=== PATIENT | male | born 1945 | race Caucasian/White ===

== ENCOUNTER → 2017-04-03 | Outpatient (CLI) | payer MEDICARE, OTHER ==
[~2017-04-03] MED LIST: ALBU6.7H INH; AMOX500T PO; ASPI325T PO; CIAL20TA PO; CLOB-50 TOP; FEXO60TA PO; FURO20TA PO; LOSA50TA PO; MILK200C PO; OMEG100037 PO; PRAM0.25 PO; PRED20 PO; PROS5TAB2 PO; PROT0.1O TOP; SODI1000 PO; TAB-TAB PO; TERB250 PO; TRAM50TA PO; ZOLP10TA3 PO; [UNRECOGNIZED DRUG - OTHER] PO
--- NOTE | 2017-04-24 09:24 | RSPPFT ---
DATE OF PROCEDURE: 04/03/17 COMMENTS: Spirometry demonstrates an FEV1 of 1.5 at 39% of predicted, FVC of 3.7 at 76%, FEV1/FVC ratio is 40%. The FEF 25-75 is 9%. Post-bronchodilator study demonstrated no significant change. Lung volumes demonstrated a raised RV/TLC ratio indicating hyperinflation and air trapping. Diffusion capacity is moderately reduced. Flow volume loop suggests severe obstruction. IMPRESSION: 1. Severe obstructive disease. 2. No significant change following use of bronchodilator. 3. Moderate loss in diffusion capacity.
== END ==
LOC: PHRSP 09:24
DX: J44.9 Chronic obstructive pulmonary disease, unspecified (principal); R05 Cough; R06.00 Dyspnea, unspecified
CPT/HCPCS: 94060; 94726; 94729

== ENCOUNTER 2017-07-02 13:58 | Inpatient (IN) | payer MEDICARE, OTHER ==
[2017-07-02] VITALS (9 sets, daily range): BP systolic 135–168; BP diastolic 56–86; PULSE 83–92; RESP 16–24; TEMP 97.2–98; O2SAT 90–95
[~2017-07-02] VITALS: Ht 185.4 cm; Wt 65.0 kg
[2017-07-02] MEDS ORDERED: CIAL5TAB PO (14:15)
[2017-07-02] MEDS ORDERED: L-AR1000 (14:15)
[2017-07-02] MEDS ORDERED: FINA5TAB2 (14:15)
[2017-07-02] MEDS ORDERED: BOSWTAB2 PO (14:15)
[2017-07-02] MEDS ORDERED: LOSARTAN POTASSIUM (14:15)
[2017-07-02] MEDS ORDERED: MILKPOW (14:15)
[2017-07-02] MEDS ORDERED: MULTTAB67 PO (14:15)
[2017-07-02] MEDS ORDERED: ALPH600C (14:15)
[2017-07-02] MEDS ORDERED: GABA600T PO (14:15)
[2017-07-02] MEDS ORDERED: ASPI81CH7 CHEW (14:15)
[2017-07-02] MEDS ORDERED: BUPR75TA PO (14:15)
[2017-07-02] MEDS ORDERED: UMEC1AER INH (14:15)
[2017-07-02] MEDS: RESP: ALBUTEROL 2.5 MG/IPRATROPIUM 0.5 MG NEB (SCH) INH ×2 (14:27→19:43)
[2017-07-02] MEDS ORDERED: ALBU0.63 NEB (14:36)
[2017-07-02] MEDS ORDERED: [UNRECOGNIZED DRUG - OTHER] NAS.CANULA (14:36)
[2017-07-02 14:38] LABS: BASOPHIL % 0.5 % (0.0-2.0); EOSINOPHIL # 0.2 TH/MM3 (0-0.4); EOSINOPHIL % 2.1 % (0.0-4.0); HEMATOCRIT 41.3 % (39.0-51.0); HEMOGLOBIN 13.7 GM/DL (13.0-17.0); LYMPHOCYTE # 1.1 TH/MM3 (1.0-4.8); MEAN CELL VOLUME 92.3 FL (80.0-100.0); MEAN CORPUSCULAR HEMOGLOBIN 30.5 PG (27.0-34.0); MEAN CORPUSCULAR HGB CONC 33.1 % (32.0-36.0); MEAN PLATELET VOLUME 8.6 FL (7.0-11.0); MONO % 13.7 % (0.0-8.0); MONOCYTE # 1.2 TH/MM3 (0-0.9); NEUT % 70.7 % (16.0-70.0); PLATELET COUNT 150 TH/MM3 (150-450); RED BLOOD COUNT 4.48 MIL/MM3 (4.50-5.90); RED CELL DISTRIBUTION WIDTH 15.5 % (11.6-17.2); WHITE BLOOD COUNT 8.5 TH/MM3 (4.0-11.0)
--- NOTE | 2017-07-02 14:42 | PD ---
HPI Chief Complaint: Respiratory Symptoms Time Seen by Provider: 14:02 Travel History International Travel<30 days: No Contact w/Intl Traveler<30days: No Traveled to known affect area: No History of Present Illness HPI 72yo M with PMH of COPD on 2L home O2 here with c/o sob since yesterday. Said he has been having cold symptoms as well. +Cough. Quit smoking yesterday. Denies any fever, chest pain, n/v, abdominal pain, focal weakness or numbness. Pt was given duonebs x2 and methylprednisolone by EVAC and has some improvement. PFSH Past Medical History Cardiac Catheterization: No Cardiovascular Problems: Yes High Cholesterol: Yes Congestive Heart Failure: No COPD: Yes Diabetes: No Diminished Hearing: No Hypertension: Yes Respiratory: Yes (COPD) Myocardial Infarction: No Past Surgical History Coronary Artery Bypass Graft: No Tonsillectomy: Yes Other Surgery: Yes (FEM POP LEFT LEG 1998) Social History Alcohol Use: Yes (BEER DAILY) Tobacco Use: Yes (1 PPD) Substance Use: No Allergies-Medications (Allergen,Severity, Reaction): Coded Allergies: No Known Allergies (Verified Allergy, Unknown, 07/02/17) Reported Meds & Prescriptions Reported Meds & Active Scripts Active Reported Albuterol Neb (Albuterol Sulfate) Unknown Strength Neb Unknown Dose NEB Q4HR NEB PRN [oxygen O2 @2lpm] 2 Liter OJSE.CANULA DIRECTED Gabapentin 600 Mg Tab 600 Mg PO HS [Losartan Potassium] [Milk Thistle] Alpha Lipoic Acid 600 Mg Cap 600 Mg DIRECTED Aspirin Children's (Aspirin) 81 Mg Chew 81 Mg CHEW BID Glucosamine Complex (Mcuuoeejf-Lnfsxczhpkp-Gqooyyh) 1 Tab 1 Tab PO l-Arginine (Arginine) 1,000 Mg Tab Multiple Vitamin 1 Tab 1 Tab PO DAILY Cialis (Tadalafil) 5 Mg Tab 5 Mg PO DAILY Do not exceed 1 dose/day. Finasteride 5 Mg Tab 5 Mg DAILY Do not crush. Bupropion HCl 75 Mg Tab 150 Mg PO DAILY Anoro Ellipta Inh (Umeclidinium/Vilanterol) 62.5-25 Mcg/Act Aero 1 Puff INH DAILY Review of Systems Except as stated in HPI: all other systems reviewed are Neg Physical Exam Narrative GENERAL: 72yo M in moderate distress. SKIN: Focused skin assessment warm/dry. HEAD: Atraumatic. Normocephalic. EYES: Pupils equal and round. No scleral icterus. No injection or drainage. ENT: No nasal bleeding or discharge. Mucous membranes pink and moist. NECK: Trachea midline. No JVD. CARDIOVASCULAR: Regular rate and rhythm. No murmur appreciated. RESPIRATORY: + accessory muscle use. Expiratory wheezing left upper lung. GASTROINTESTINAL: Abdomen soft, non-tender, nondistended. Hepatic and splenic margins not palpable. MUSCULOSKELETAL: No obvious deformities. No clubbing. No cyanosis. Trace lower extremity edema. NEUROLOGICAL: Awake and alert. No obvious cranial nerve deficits. Motor grossly within normal limits. Normal speech. PSYCHIATRIC: Appropriate mood and affect; insight and judgment normal. Data Data Last Documented VS Vital Signs Date Time Temp Pulse Resp B/P (MAP) Pulse Ox O2 Delivery O2 Flow Rate FiO2 07/02/17 16:15 87 18 135/56 (82) 92 Nasal Cannula 4.00 07/02/17 14:03 98.0 Orders Orders Complete Blood Count With Diff (07/02/17 14:17) Basic Metabolic Panel (Bmp) (07/02/17 14:17) B-Type Natriuretic Peptide (07/02/17 14:17) Act Partial Throm Time (Ptt) (07/02/17 14:17) Prothrombin Time / Inr (Pt) (07/02/17 14:17) Magnesium (Mg) (07/02/17 14:17) Troponin I (07/02/17 14:17) Influenzae A/B Antigen (07/02/17 14:17) Electrocardiogram (07/02/17 14:17) Chest, Single Ap (07/02/17 14:17) Albuterol-Ipratropium Neb (Duoneb Neb) (07/02/17 14:30) Arterial Blood Gas (Abg) (07/02/17 ) Albuterol Neb (Albuterol Neb) (07/02/17 16:15) Ct Pulmonary Angiogram (07/02/17 ) Admit To Inpatient (07/02/17 16:08) Vital Signs (Adult) Q4H (07/02/17 16:08) Activity Oob Ad Kaila (07/02/17 ) Diet Heart Healthy (07/02/17 Dinner) Sodium Chloride 0.9% Flush (Ns Flush) (07/02/17 21:00) Sodium Chloride 0.9% Flush (Ns Flush) (07/02/17 16:15) Albuterol-Ipratropium Neb (Duoneb Neb) (07/02/17 20:00) Albuterol Neb (Albuterol Neb) (07/02/17 18:00) Methylprednisolone So Succ Inj (Solumedr (07/02/17 18:00) Basic Metabolic Panel (Bmp) (07/03/17 06:00) Resp Pulse Oximetry (07/02/17 16:08) Resp Oxygen Jose C Titrat 1-4 L (07/02/17 16:08) Levofloxacin 750 Mg Premix Inj (Levaquin (07/03/17 17:00) Enoxaparin Inj (Lovenox Inj) (07/02/17 18:00) Admit Order (Ed Use Only) (07/02/17 16:14) Labs Laboratory Tests Test 07/02/17 14:05 07/02/17 16:10 White Blood Count 8.5 TH/MM3 Red Blood Count 4.48 MIL/MM3 Hemoglobin 13.7 GM/DL Hematocrit 41.3 % Mean Corpuscular Volume 92.3 FL Mean Corpuscular Hemoglobin 30.5 PG Mean Corpuscular Hemoglobin Concent 33.1 % Red Cell Distribution Width 15.5 % Platelet Count 150 TH/MM3 Mean Platelet Volume 8.6 FL Neutrophils (%) (Auto) 70.7 % Lymphocytes (%) (Auto) 13.0 % Monocytes (%) (Auto) 13.7 % Eosinophils (%) (Auto) 2.1 % Basophils (%) (Auto) 0.5 % Neutrophils # (Auto) 6.0 TH/MM3 Lymphocytes # (Auto) 1.1 TH/MM3 Monocytes # (Auto) 1.2 TH/MM3 Eosinophils # (Auto) 0.2 TH/MM3 Basophils # (Auto) 0.0 TH/MM3 CBC Comment DIFF FINAL Differential Comment Prothrombin Time 10.4 SEC Prothromb Time International Ratio 1.0 RATIO Activated Partial Thromboplast Time 28.2 SEC Blood Urea Nitrogen 10 MG/DL Creatinine 0.52 MG/DL Random Glucose 102 MG/DL Calcium Level 9.6 MG/DL Magnesium Level 2.1 MG/DL Sodium Level 130 MEQ/L Potassium Level 4.4 MEQ/L Chloride Level 96 MEQ/L Carbon Dioxide Level 26.5 MEQ/L Anion Gap 8 MEQ/L Estimat Glomerular Filtration Rate 155 ML/MIN Troponin I LESS THAN 0.02 NG/ML B-Type Natriuretic Peptide 66 PG/ML Blood Gas Puncture Site RT RADIAL Blood Gas Patient Temperature 98.6 Blood Gas HCO3 26 mmol/L Blood Gas Base Excess 2.1 mmol/L Blood Gas Oxygen Saturation 81 % Arterial Blood pH 7.42 Arterial Blood Partial Pressure CO2 41 mmHG Arterial Blood Partial Pressure O2 49 mmHG Arterial Blood Oxygen Content 16.4 Vol % Arterial Blood Carboxyhemoglobin 2.3 % Arterial Blood Methemoglobin 1.2 % Blood Gas Hemoglobin 14.4 G/DL Oxygen Delivery Device NASAL CANNULA Blood Gas Liter Flow 2 L/M MDM Medical Decision Making Medical Screen Exam Complete: Yes Emergency Medical Condition: Yes Interpretation(s) EKG: NSR 86bpm. LAD. No ST segment elevation or depression. Differential Diagnosis COPD exacerbation vs. pneumonia vs. influenza Narrative Course 72yo M with COPD on home O2 here with sob. Feels like his COPD. Pt has been having cold symptoms. Pt given duonebs x2 and methylprednisolone by EVAC. Pt has mild wheezing and given another 2 nebulizer treatments here. Pt reevaluated at bedside and feels a little better. Lungs are clear now but still tachypneic. 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 Labs reviewed, no leukocytosis. H/H normal. BNP normal. Troponin negative. Mild hyponatremia at 130. CXR showed no acute cardiopulmonary disease. However, pt stood up and felt worsening sob. Pt is still on 2L nasal cannula and O2 sat is 85%. Will obtain ABG. ABG showed O2 sat of 81% on 2L NC. Pt is now on 4L NC and feels better. Will give another treatment. Will do CT angio to r/o PE. CTA showed COPD and scar in lungs. No PE. Discussed with Dr. Alvarado and accepted to her service. Diagnosis Primary Impression: Acute respiratory failure with hypoxia Admitting Information Admitting Physician Requests: Admit Elizabeth Swain DO Jul 02, 2017 14:42
[2017-07-02 14:51] LABS: CHLORIDE 96 MEQ/L (98-107); SODIUM (NA) 130 MEQ/L (136-145)
[2017-07-02 14:54] LABS: CALCIUM 9.6 MG/DL (8.5-10.1)
[2017-07-02 14:55] LABS: BICARBONATE 26.5 MEQ/L (21.0-32.0); BLOOD UREA NITROGEN 10 MG/DL (7-18); GLUCOSE,RANDOM 102 MG/DL (74-106); MAGNESIUM 2.1 MG/DL (1.5-2.5)
[2017-07-02 14:57] LABS: PROTHROMBIN TIME - PATIENT 10.4 SEC (9.8-11.6)
[2017-07-02 14:58] LABS: CREATININE 0.52 MG/DL (0.60-1.30); GLOMERULAR FILTRATION RATE 155 ML/MIN (>89)
--- NOTE | 2017-07-02 15:00 | RADRPT ---
EXAM DATE/TIME: 07/02/2017 14:35 [facility] COMPARISON: CHEST SINGLE AP, January 07, 2015, 22:15. INDICATIONS : Short of breath MEDICAL HISTORY : Chronic obstructive pulmonary disease. SURGICAL HISTORY : None. ENCOUNTER: Initial ACUITY: 1 day PAIN SCORE: 0/10 LOCATION: Bilateral chest FINDINGS: The lungs are clear without infiltrate, nodule, or mass. There is no appreciable pleural effusion fo r technique. Heart and mediastinum are unremarkable. CONCLUSION: No acute cardiopulmonary disease. Brunilda Goodman MD on July 02, 2017 at 14:57 Board Certified Radiologist. This report was verified electronically.
[2017-07-02 15:03] LABS: TROPONIN I LESS THAN 0.02 NG/ML (0.02-0.05)
[2017-07-02] MEDS ORDERED: SODIUM CHLORIDE 0.9% FLUSH 10 ML FLUSH IV FLUSH PRN (16:15)
[2017-07-02] MEDS ORDERED: RESP: ALBUTEROL 2.5 MG/3 ML NEB (SCH) NEB ONE (16:15)
[2017-07-02] MEDS ORDERED: IOHEXOL 350 MG/ML 10 ML VIAL (for RAD DIAG) IVCONTRAST ONE (16:50)
--- NOTE | 2017-07-02 16:59 | RADRPT ---
EXAM DATE/TIME: 07/02/2017 16:42 [facility] COMPARISON: CHEST SINGLE AP, July 02, 2017, 14:35. INDICATIONS : Short of breath. Evaluate for pulmonary embolism. IV CONTRAST: 65 cc Omnipaque 350 (iohexol) IV RADIATION DOSE: 10.28 CTDIvol (mGy) MEDICAL HISTORY : Hypertension. Chronic obstructive pulmonary disease. Hypercholesterolemia. SURGICAL HISTORY : None. ENCOUNTER: Initial ACUITY: 2 days PAIN SCALE: 0/10 LOCATION: chest TECHNIQUE: Volumetric scanning of the chest was performed using a pulmonary embolism protocol MIP images were re constructed. Using automated exposure control and adjustment of the mA and/or kV according to patien t size, radiation dose was kept as low as reasonably achievable to obtain optimal diagnostic quality images. DICOM format image data is available electronically for review and comparison. Follow-up recommendations for detected pulmonary nodules are based at a minimum on nodule size and pa tient risk factors according to Fleischner Society Guidelines. FINDINGS: There is COPD with areas of scarring in both lungs worse in the lingula with a triangular-shaped dens ity almost 5-6 mm in size right upper lobe medially probable scar as well. There is no evidence for P E for technique.There is no pleural effusion. No appreciable pathological adenopathy is seen within the mediastinum. CONCLUSION: COPD and probable scar in the lungs, repeat noncontrasted CT is suggested in 6 months as a conservative follow up. Brunilda Goodman MD on July 02, 2017 at 16:53 Board Certified Radiologist. This report was verified electronically.
[2017-07-02] MEDS ORDERED: RESP: ALBUTEROL 2.5 MG/3 ML NEB (PRN) INH (18:00)
[2017-07-02] MEDS: methylPREDNISolone SOD SUCC 125 MG/2 ML VIAL IV PUSH SCH (18:28)
[2017-07-02] MEDS: ENOXAPARIN SODIUM 40 MG/0.4 ML SYRINGE SQ SCH (18:33)
[2017-07-02] MEDS: ASPIRIN 81 MG CHEW TAB CHEW SCH (21:33)
[2017-07-02] MEDS: GABAPENTIN 300 MG CAP PO SCH (21:33)
[2017-07-02] MEDS: SODIUM CHLORIDE 0.9% FLUSH 10 ML FLUSH IV FLUSH SCH (21:33)
[2017-07-03] VITALS (8 sets, daily range): BP systolic 104–177; BP diastolic 65–76; PULSE 69–93; RESP 16–20; TEMP 96.6–98.4; O2SAT 92–100
[2017-07-03] MEDS: methylPREDNISolone SOD SUCC 125 MG/2 ML VIAL IV PUSH SCH ×5 (00:35→23:05)
[2017-07-03 06:17] LABS: CALCIUM 9.1 MG/DL (8.5-10.1)
[2017-07-03 06:18] LABS: BICARBONATE 29.9 MEQ/L (21.0-32.0)
[2017-07-03 06:21] LABS: CREATININE 0.54 MG/DL (0.60-1.30)
[2017-07-03] MEDS: RESP: ALBUTEROL 2.5 MG/IPRATROPIUM 0.5 MG NEB (SCH) INH ×3 (07:11→19:21)
[2017-07-03] MEDS: buPROPion HCL 75 MG TAB PO SCH (08:42)
[2017-07-03] MEDS: FINASTERIDE 5 MG TAB PO SCH (08:43)
[2017-07-03] MEDS: SODIUM CHLORIDE 0.9% FLUSH 10 ML FLUSH IV FLUSH SCH ×2 (08:43→20:55)
[2017-07-03] MEDS: ASPIRIN 81 MG CHEW TAB CHEW SCH ×2 (08:43→20:55)
--- NOTE | 2017-07-03 09:13 | HHI.HP ---
[facility] Service [place] [facility] Primary Care Physician Devyn Ferrera DO Admission Diagnosis COPD exacerbation Diagnoses: (1) Acute respiratory failure with hypoxia Diagnosis: Principal (2) COPD exacerbation (3) Hyponatremia Chief Complaint: COPD exacerbation Travel History International Travel<30 Days: No Contact w/Intl Traveler <30 Da: No Traveled to Known Affected Are: No Sepsis Criteria SIRS Criteria (2 or more): RR > 20 or PaCO2 < 32 History of Present Illness The patient is a 72-year-old male with history of COPD who presented to the emergency department with worsening shortness of breath for the last 2 days. He states that around [place] developed a head cold. Since that time he has had increased shortness of breath. He has been using oxygen continuously, 2 L via his oxygen concentrator at home. He states that on Monday he woke up with old symptoms again and continued to have worsening shortness of breath throughout Monday and Monday. He states that he feels better now, but still feels short of breath. Denies chest pain. Denies fever, chills, night sweats. Review of Systems Constitutional: DENIES: Fever, Chills, Night Sweats Eyes: DENIES: Blurred vision, Vision loss Ears, nose, mouth, throat: DENIES: Hearing loss Respiratory: COMPLAINS OF: Cough, Wheezing, Sputum production, Shortness of breath Cardiovascular: DENIES: Chest pain, Palpitations, Dyspnea on Exertion, Lower Extremity Edema Gastrointestinal: DENIES: Abdominal pain, Constipation, Diarrhea, Nausea, Vomiting Genitourinary: DENIES: Urinary frequency, Urinary incontinence, Urgency, Hematuria, Dysuria, Nocturia Musculoskeletal: DENIES: Joint pain, Muscle aches Integumentary: DENIES: Pruritus, Rash Hematologic/lymphatic: DENIES: Bruising Neurologic: DENIES: Headache Past Family Social History Past Medical History COPD Hyperlipidemia Hypertension Past Surgical History Femoropopliteal bypass left leg Tonsillectomy Reported Medications Albuterol Neb (Albuterol Sulfate) Unknown Strength Neb Unknown Dose NEB Q4HR NEB PRN [oxygen O2 @2lpm] 2 Liter JOSE.CANULA DIRECTED Gabapentin 600 Mg Tab 600 Mg PO HS [Losartan Potassium] [Milk Thistle] Alpha Lipoic Acid 600 Mg Cap 600 Mg DIRECTED Aspirin Children's (Aspirin) 81 Mg Chew 81 Mg CHEW BID Glucosamine Complex (Cuvceufvq-Kadkjuzfkdp-Gavnffd) 1 Tab 1 Tab PO l-Arginine (Arginine) 1,000 Mg Tab Multiple Vitamin 1 Tab 1 Tab PO DAILY Cialis (Tadalafil) 5 Mg Tab 5 Mg PO DAILY Do not exceed 1 dose/day. Finasteride 5 Mg Tab 5 Mg DAILY Do not crush. Bupropion HCl 75 Mg Tab 150 Mg PO DAILY Anoro Ellipta Inh (Umeclidinium/Vilanterol) 62.5-25 Mcg/Act Aero 1 Puff INH DAILY Allergies: Coded Allergies: No Known Allergies (Verified Allergy, Unknown, 07/02/17) Family History Heart disease Father had a ruptured aorta Mother had cancer Social History Smokes one pack per day. Drinks 3-4 beers per day. Denies illicit drug use. Physical Exam Vital Signs Vital Signs Date Time Temp Pulse Resp B/P (MAP) Pulse Ox O2 Delivery O2 Flow Rate FiO2 07/03/17 08:00 97.6 69 20 154/72 (99) 98 07/03/17 07:13 98 Nasal Cannula 4.00 07/03/17 07:00 95 Nasal Cannula 4.00 Humidified 07/03/17 00:00 98.4 87 16 128/66 (86) 100 07/02/17 20:00 95 Nasal Cannula 4.00 Humidified 07/02/17 20:00 98.0 83 16 153/70 (97) 95 07/02/17 19:45 93 Nasal Cannula 4.00 07/02/17 18:00 97.2 92 16 90 07/02/17 17:20 79 18 144/63 (90) 93 Nasal Cannula 4.00 07/02/17 16:15 87 18 135/56 (82) 92 Nasal Cannula 4.00 07/02/17 16:15 91 Nasal Cannula 4.00 07/02/17 16:00 92 20 91 Nasal Cannula 3.50 07/02/17 15:55 90 20 140/56 (84) 90 Nasal Cannula 3.50 07/02/17 15:07 85 20 149/67 (94) 90 Nasal Cannula 3.50 07/02/17 14:42 92 Nasal Cannula 4.00 07/02/17 14:08 90 Nasal Cannula 2.00 07/02/17 14:03 98.0 86 24 168/86 (113 93 Physical Exam GENERAL: Elderly male in no acute distress. HEENT: Normocephalic, atraumatic. Pupils equal, round and reactive. Extraocular movements intact. No scleral icterus. No injection or drainage. Oropharynx is clear. Mucous membranes are moist. CARDIOVASCULAR: Regular rate and rhythm without murmurs, gallops, or rubs. RESPIRATORY: Mild scattered wheeze. Poor air entry. Breathing is somewhat labored. GASTROINTESTINAL: Abdomen soft, non-tender, nondistended. EXTREMITIES: No lower extremity edema. No calf tenderness. PSYCH: Alert and oriented x 3. Laboratory Laboratory Tests Test 07/02/17 14:05 07/02/17 16:10 07/03/17 04:50 White Blood Count 8.5 Red Blood Count 4.48 Hemoglobin 13.7 Hematocrit 41.3 Mean Corpuscular Volume 92.3 Mean Corpuscular Hemoglobin 30.5 Mean Corpuscular Hemoglobin Concent 33.1 Red Cell Distribution Width 15.5 Platelet Count 150 Mean Platelet Volume 8.6 Neutrophils (%) (Auto) 70.7 Lymphocytes (%) (Auto) 13.0 Monocytes (%) (Auto) 13.7 Eosinophils (%) (Auto) 2.1 Basophils (%) (Auto) 0.5 Neutrophils # (Auto) 6.0 Lymphocytes # (Auto) 1.1 Monocytes # (Auto) 1.2 Eosinophils # (Auto) 0.2 Basophils # (Auto) 0.0 CBC Comment DIFF FINAL Differential Comment Prothrombin Time 10.4 Prothromb Time International Ratio 1.0 Activated Partial Thromboplast Time 28.2 Blood Urea Nitrogen 10 9 Creatinine 0.52 0.54 Random Glucose 102 175 Calcium Level 9.6 9.1 Magnesium Level 2.1 Sodium Level 130 131 Potassium Level 4.4 4.6 Chloride Level 96 96 Carbon Dioxide Level 26.5 29.9 Anion Gap 8 5 Estimat Glomerular Filtration Rate 155 149 Troponin I LESS THAN 0.02 B-Type Natriuretic Peptide 66 Blood Gas Puncture Site RT RADIAL Blood Gas Patient Temperature 98.6 Blood Gas HCO3 26 Blood Gas Base Excess 2.1 Blood Gas Oxygen Saturation 81 Arterial Blood pH 7.42 Arterial Blood Partial Pressure CO2 41 Arterial Blood Partial Pressure O2 49 Arterial Blood Oxygen Content 16.4 Arterial Blood Carboxyhemoglobin 2.3 Arterial Blood Methemoglobin 1.2 Blood Gas Hemoglobin 14.4 Oxygen Delivery Device NASAL CANNULA Blood Gas Liter Flow 2 Date/Time Source Procedure Growth Status 07/02/17 16:20 Nasal Aspirate Influenza Types A,B Antigen (ANDREA) - Final NEGATIVE FOR FLU A AND B ANTIGEN.... Complete Result Diagram: 07/02/17 1405 07/03/17 0450 Imaging Last Impressions Chest X-Ray 07/02/17 1417 Signed Impressions: Service Date/Time: Sunday, July 02, 2017 14:35 - CONCLUSION: No acute cardiopulmonary disease. Brunilda Goodman MD CT Angiography 07/02/17 0000 Signed Impressions: Service Date/Time: Sunday, July 02, 2017 16:42 - CONCLUSION: COPD and probable scar in the lungs, repeat noncontrasted CT is suggested in 6 months as a conservative follow up. MD [place] Pereira VTE Risk Assessment Caprini VTE Risk Assessment: Mod/High Risk (score >= 2) Caprini Risk Assessment Model Point Value = 1 Point Value = 2 Point Value = 3 Point Value = 5 Age 41-60 Minor surgery BMI > 25 kg/m2 Swollen legs Varicose veins or History of unexplained or recurrent spontaneous Oral contraceptives or hormone replacement Sepsis (< 1 month) Serious lung disease, including pneumonia (< 1 month) Abnormal pulmonary function Acute myocardial infarction Congestive heart failure (< 1 month) History of inflammatory bowel disease Medical patient at bed rest Age 61-74 Arthroscopic surgery Major open surgery (> 45 min) Laparoscopic surgery (> 45 min) Malignancy Confined to bed (> 72 hours) Immobilizing plaster cast Central venous access Age >= 75 History of VTE Family history of VTE Factor V Leiden Prothrombin [id number] Lupus anticoagulant Anticardiolipin antibodies Elevated serum homocysteine Heparin-induced thrombocytopenia Other congenital or acquired thrombophilia Stroke (< 1 month) Elective arthroplasty Hip, pelvis, or leg fracture Acute spinal cord injury (< 1 month) Prophylaxis Regimen Total Risk Factor Score Risk Level Prophylaxis Regimen 0-1 Low Early ambulation 2 Moderate Order ONE of the following: *Sequential Compression Device (SCD) *Heparin 5000 units SQ BID 3-4 Higher Order ONE of the following medications: *Heparin 5000 units SQ TID *Enoxaparin/Lovenox 40 mg SQ daily (WT < 150 kg, CrCl > 30 mL/min) *Enoxaparin/Lovenox 30 mg SQ daily (WT < 150 kg, CrCl > 10-29 mL/min) *Enoxaparin/Lovenox 30 mg SQ BID (WT < 150 kg, CrCl > 30 mL/min) AND/OR *Sequential Compression Device (SCD) 5 or more Highest Order ONE of the following medications: *Heparin 5000 units SQ TID (Preferred with Epidurals) *Enoxaparin/Lovenox 40 mg SQ daily (WT < 150 kg, CrCl > 30 mL/min) *Enoxaparin/Lovenox 30 mg SQ daily (WT < 150 kg, CrCl > 10-29 mL/min) *Enoxaparin/Lovenox 30 mg SQ BID (WT < 150 kg, CrCl > 30 mL/min) AND *Sequential Compression Device (SCD) Assessment and Plan Assessment and Plan 1. Acute respiratory failure, COPD exacerbation: Continue supplemental oxygen. Continue bronchodilators, steroids, antibiotics. Patient requesting consult to his comic book artist, Dr. Anne. 2. Hyponatremia, mild: Monitor labs. 3. Peripheral neuropathy: Continue gabapentin. 4. DVT prophylaxis: Lovenox. Physician Certification 2 Midnight Certification Type: Admission for Inpatient Services Order for Inpatient Services The services are ordered in accordance with Medicare regulations or non- Medicare payer requirements, as applicable. In the case of services not specified as inpatient-only, they are appropriately provided as inpatient services in accordance with the 2-midnight benchmark. Estimated LOS (days): 2 days is the estimated time the patient will need to remain in the hospital, assuming treatment plan goals are met and no additional complications. Post-Hospital Plan: Home Abraham Hudson MD Jul 03, 2017 09:13
[2017-07-03] MEDS ORDERED: LEVOFLOXACIN 750 MG PREMIX INJ 150 ML IV SCH (17:00)
[2017-07-03] MEDS: ENOXAPARIN SODIUM 40 MG/0.4 ML SYRINGE SQ SCH (18:17)
[2017-07-03] MEDS: GABAPENTIN 300 MG CAP PO SCH (20:54)
[2017-07-03] MEDS: guaiFENesin E.R. 600 MG TAB PO SCH (20:54)
[2017-07-03] MEDS ORDERED: REMOVE OLD NICODERM (NICOTINE) PATCH T-DERMAL SCH (21:00)
--- NOTE | 2017-07-03 23:04 | EKG ---
Date Performed: 07/02/2017 Time Performed: 13:55:56 PTAGE: 72 years EKG: Sinus rhythm NORMAL ECG INTERPRETATION BASED ON A DEFAULT AGE OF 40 YEARS NO PREVIOUS TRACING DOCTOR: Eufemia Spencer Interpretating Date/Time 07/03/2017 23:02:41
[2017-07-03] MEDS: BUDESONIDE-FORMOTEROL 160/4.5 MCG INHALER INH SCH (23:05)
[2017-07-04] VITALS: BP 166/70; PULSE 77; RESP 18; TEMP 97; O2SAT 99
[2017-07-04] MEDS: methylPREDNISolone SOD SUCC 125 MG/2 ML VIAL IV PUSH SCH ×2 (06:35→11:29)
[2017-07-04 06:55] LABS: BICARBONATE 30.7 MEQ/L (21.0-32.0)
[2017-07-04 06:58] LABS: CREATININE 0.47 MG/DL (0.60-1.30)
[2017-07-04 08:00] VITALS: BP 183/76; PULSE 71; RESP 16; TEMP 95.6; O2SAT 96
--- NOTE | 2017-07-04 08:23 | MB ---
cc: NATTY ANNE DATE OF CONSULTATION 07/03/2017 REASON FOR CONSULTATION COPD and respiratory distress. HISTORY OF PRESENT ILLNESS This is a 72-year-old white male with a longstanding history of COPD and longstanding history of smoking. He was having progressive shortness of breath, cough, chest congestion, grayish-yellow expectoration and wheezing. The patient has been sick for at least four weeks with respiratory infection and bronchitis which gradually improved last month but over the past few days he has gotten worse with increasing chest congestion and inability to expectorate. He has also been on home oxygen but failed to improve in spite of using it all the time. He had chest tightness, no hemoptysis. He has no reflux, nausea or vomiting. PAST HISTORY 1. History of hyperlipidemia. 2. Hypertension. 3. History of COPD. 4. He has had femoral-popliteal bypass of the left leg. 5. Tonsillectomy remotely. MEDICATIONS Med list included - 1. Aspirin one daily. 2. Gabapentin 600 mg h.s. 3. Nebulized albuterol t.i.d. p.r.n. 4. O2 2 liters. 5. Cialis 5 mg daily. 6. Finasteride 5 mg a day. 7. Bupropion 150 mg a day. 8. Anoro Ellipta one puff per day. HABITS The patient smoked one-pack per day, has done so for over 50 years. Drinks beer daily. FAMILY HISTORY Significant for aortic aneurysm in his father. Mother had malignancy. REVIEW OF SYSTEMS The patient has cough and wheezing, orthopnea, epigastric distress and reflux. He has urinary frequency, dysuria. He has had leg swelling and joint pains of his extremities and lower back pain. He has some anxiety attacks. The other system review as in Presenting Complaint. PHYSICAL EXAMINATION GENERAL: This is an averagely built, elderly man who is mildly dyspneic and the face was plethoric. VITAL SIGNS: His blood pressure was 138/80, pulse 90, respirations 22, temperature 98.2. HEENT: Head normocephalic. Pupils are reactive and equal. Tongue is moist. Throat is injected. Nasal mucosae edematous. NECK: Supple. No bruits or thyroid enlargement. CHEST: Distant breath sounds with expiratory wheezes throughout both lung dugan. Prolonged expirations. HEART: The heart sounds are irregular. S1 and S2 with no murmur. No S3 gallop. ABDOMEN: Soft, protuberant, without masses. No organomegaly or tenderness. Bowel sounds are active. EXTREMITIES: Mild varicosities and edema 1+ with diminished pulses. Reflexes are 1+ with no gross motor deficits. IMAGING STUDIES CT scan shows scars in the lung but otherwise unremarkable. IMPRESSION 1. COPD with acute exacerbation. 2. Respiratory failure with hypoxemia. 3. Peripheral neuropathy. 4. Nicotine dependency. PLAN 1. The patient will be placed on O2 at 4 liters and weaned down to nebulized DuoNeb solution added every 4 hours and Solu-Medrol 60 mg IV q.6 hours. 2. Continue the Levaquin 750 mg IV daily. 3. Sputum sent for Gram's stain and culture. 4. Nicotine patch 14 mg for 24 hours was added and counseled about quitting cigarette smoking. 5. Symbicort 160/4.5 mcg 2 puffs twice daily was added. 6. I will follow and discuss the case with you. 7. Dr. Hudson, thank you for this consultation. Natty Anne MD JTD/KEISHA /8:06 PM /8:08 AM
[2017-07-04] MEDS: buPROPion HCL 75 MG TAB PO SCH (08:26)
[2017-07-04] MEDS: FINASTERIDE 5 MG TAB PO SCH (08:26)
[2017-07-04] MEDS: ASPIRIN 81 MG CHEW TAB CHEW SCH (08:26)
[2017-07-04] MEDS: guaiFENesin E.R. 600 MG TAB PO SCH (08:26)
[2017-07-04] MEDS: SODIUM CHLORIDE 0.9% FLUSH 10 ML FLUSH IV FLUSH SCH (08:27)
[2017-07-04] MEDS ORDERED: ENALAPRILAT 1.25 MG/ML VIAL IV PUSH PRN (08:45)
[2017-07-04] MEDS ORDERED: cloNIDine HCL 0.1 MG TAB PO PRN (08:45)
[2017-07-04] MEDS ORDERED: LOSA50TA PO (08:50)
[2017-07-04] MEDS ORDERED: NICOTINE 14 MG/24 HR PATCH T-DERMAL SCH (09:00)
[2017-07-04] MEDS: RESP: ALBUTEROL 2.5 MG/IPRATROPIUM 0.5 MG NEB (SCH) INH ×3 (09:15→14:48)
[2017-07-04 09:17] VITALS: O2SAT 95
[2017-07-04] MEDS: BUDESONIDE-FORMOTEROL 160/4.5 MCG INHALER INH SCH (09:22)
[2017-07-04] MEDS ORDERED: LACTTAB8 PO (10:19)
[2017-07-04] MEDS ORDERED: OXYGENDME NAS.CANULA (10:19)
[2017-07-04] MEDS ORDERED: PRED20 PO (10:19)
[2017-07-04] MEDS ORDERED: LEVA750T9 PO (10:19)
[2017-07-04 10:59] VITALS: BP 137/65; O2SAT 95
[2017-07-04 12:00] VITALS: BP 137/65; PULSE 81; RESP 16; TEMP 96.7; O2SAT 95
--- NOTE | 2017-07-04 12:27 | HHI.DS ---
Discharge Summary Admission Date Jul 02, 2017 at 16:15 Discharge Date: Jul 04, 2017 Admitting Diagnosis COPD exacerbation (1) Acute respiratory failure with hypoxia ICD Code: J96.01 - Acute respiratory failure with hypoxia Diagnosis: Principal Status: Acute (2) COPD exacerbation ICD Code: J44.1 - Chronic obstructive pulmonary disease with (acute) exacerbation Diagnosis: Principal (3) Hyponatremia ICD Code: E87.1 - Hypo-osmolality and hyponatremia Diagnosis: Secondary Procedures None Brief History - From Admission The patient is a 72-year-old male with history of COPD who presented to the emergency department with worsening shortness of breath for the last 2 days. He states that around [place] developed a head cold. Since that time he has had increased shortness of breath. He has been using oxygen continuously, 2 L via his oxygen concentrator at home. He states that on Monday he woke up with old symptoms again and continued to have worsening shortness of breath throughout Monday and Monday. He states that he feels better now, but still feels short of breath. Denies chest pain. Denies fever, chills, night sweats. CBC/BMP: 07/02/17 1405 07/04/17 0500 Significant Findings Laboratory Tests Test 07/02/17 14:05 07/02/17 16:10 07/03/17 04:50 07/04/17 05:00 Red Blood Count 4.48 MIL/MM3 (4.50-5.90) Neutrophils (%) (Auto) 70.7 % (16.0-70.0) Monocytes (%) (Auto) 13.7 % (0.0-8.0) Monocytes # (Auto) 1.2 TH/MM3 (0-0.9) Creatinine 0.52 MG/DL (0.60-1.30) 0.54 MG/DL (0.60-1.30) 0.47 MG/DL (0.60-1.30) Sodium Level 130 MEQ/L (136-145) 131 MEQ/L (136-145) 132 MEQ/L (136-145) Chloride Level 96 MEQ/L (98-107) 96 MEQ/L (98-107) Troponin I LESS THAN 0.02 NG/ML Blood Gas Base Excess 2.1 mmol/L (-2-2) Blood Gas Oxygen Saturation 81 % (90-100) Arterial Blood Partial Pressure O2 49 mmHG (61-120) Random Glucose 175 MG/DL (74-106) 158 MG/DL (74-106) Anion Gap 3 MEQ/L (5-15) Hospital Course Mr. Moreno is a 72-year-old male. He was admitted secondary to COPD exacerbation. His baseline had been nocturnal use of oxygen but no daytime oxygen use. He reports that an upper respiratory tract infection had preceded his onset of graduating worsening respiratory status. She has COPD at baseline. He was unable to control his respiratory status with treatments at home including oxygen, and albuterol. Here in the hospital he was started on antibiotics, systemic steroids, scheduled breathing treatments and as needed breathing treatments. He has had improvement over the past 2 days. Medically at this point he's returning towards baseline and patient is able to ambulate with use of oxygen. Patient wishes to discharge to home. He is hypoxic without oxygen. At this point he is needing oxygen 24 hours a day at 2 L/m. He is medically stable for discharge to home with oxygen supplementation. Pt Condition on Discharge: Stable Discharge Disposition: Discharge Home Discharge Time: > 30 minutes Discharge Instructions DIET: Follow Instructions for: As Tolerated, No Restrictions Activities you can perform: Regular-No Restrictions Follow up Referrals: PCP Follow-up - 2 Weeks New Medications: Lactobacillus Acidophilus (Lactobacillus Acidophilus) 1 Billion Cell Tab 1 TAB PO TIDAC for Nutritional Supplement, #15 TAB 0 Refills Oxygen (O2) (Oxygen (O2)) Device LITER JOSE.CANULA CONTINUOUS for Prevent Hypoxemia, #2 Oxygen Concentrator Portable Gaseous 2 L/min via Nasal Canula Continuous For 99 months Prednisone (Prednisone) 20 Mg Tab 20 MG PO DAILY for Inflammation, #3 TAB 0 Refills Levofloxacin (Levaquin) 750 Mg Tablet 750 MG PO Q24H for bronchitis, #4 TAB Continued Medications: Albuterol Neb (Albuterol Neb) Unknown Strength Neb Unknown Dose NEB Q4HR NEB PRN for SHORTNESS OF BREATH, #25 NEBULE 0 Refills Alpha Lipoic Acid (Alpha Lipoic Acid) 600 Mg Cap 600 MG DIRECTED for Nutritional Supplement, CAP 0 Refills Arginine (l-Arginine) 1,000 Mg Tab Aspirin (Aspirin Children's) 81 Mg Chew 81 MG CHEW BID, TAB 0 Refills Pzdhfqqvx-Dvbgizdiaxt-Eqhafos (Glucosamine Complex) 1 Tab 1 TAB PO, TAB Bupropion HCl (Bupropion HCl) 75 Mg Tab 150 MG PO DAILY for Control Depression, TAB 0 Refills Finasteride (Finasteride) 5 Mg Tab 5 MG DAILY for Manage Prostate Problems, #30 TAB 0 Refills Do not crush. Gabapentin (Gabapentin) 600 Mg Tab 600 MG PO HS, #30 TAB 0 Refills Losartan (Losartan) 50 Mg Tab 50 MG PO HS for Blood Pressure Management, #30 TAB 0 Refills Multiple Vitamin (Multiple Vitamin) 1 Tab 1 TAB PO DAILY for Nutritional Supplement, TAB 0 Refills Tadalafil (Cialis) 5 Mg Tab 5 MG PO DAILY, TAB 0 Refills Do not exceed 1 dose/day. Umeclidinium-Vilanterol Inh (Anoro Ellipta Inh) 62.5-25 Mcg/Act Aero 1 PUFF INH DAILY for COPD, #1 INHALER 0 Refills [Losartan Potassium] () [Milk Thistle] () [oxygen O2 @2lpm] () 2 LITER JOSE.CANULA DIRECTED Demarcus Carter MD Jul 04, 2017 12:27
[2017-07-04] MEDS ORDERED: LEVOFLOXACIN 750 MG TAB PO SCH (17:00)
== END 2017-07-04 15:21 | disposition home or self-care (01) | DRG 189 ==
LOC: PHED 13:58 → OBSVTOIN 16:15 → PHEDA 16:15 → PH3A 17:22
PROVIDERS: ADMIT Family Medicine; ATTEND Hospitalist
DX: J96.01 Acute respiratory failure with hypoxia (principal); E87.1 Hypo-osmolality and hyponatremia; Z99.81 Dependence on supplemental oxygen; G62.9 Polyneuropathy, unspecified; J44.1 Chronic obstructive pulmonary disease with (acute) exacerbation; I10 Essential (primary) hypertension; F17.210 Nicotine dependence, cigarettes, uncomplicated; E78.5 Hyperlipidemia, unspecified
CPT/HCPCS: 36600; 71045; 71275; 80048; 82805; 83735; 83880; 84484; 85025; 85610; 85730; 87804; 93005; 94618; 94640; 94664; J1650; J1956; J2930; J7613; Q9967

== ENCOUNTER 2017-10-22 18:27 | Inpatient (IN) | payer MEDICARE, OTHER ==
[~2017-10-22] VITALS: Ht 186.7 cm; Wt 76.8 kg
[~2017-10-22 18:27] MED LIST changes: +ALBU0.63 NEB; -ALBU6.7H INH; +ALPH600C; -AMOX500T PO; -ASPI325T PO; +ASPI81CH7 CHEW; +BOSWTAB2 PO; +BUPR75TA PO; -CIAL20TA PO; +CIAL5TAB PO; -CLOB-50 TOP; -FEXO60TA PO; +FINA5TAB2; -FURO20TA PO; +GABA600T PO; +L-AR1000; +LACTTAB8 PO; +LEVA750T9 PO; +LOSARTAN POTASSIUM; -MILK200C PO; +MILKPOW; +MULTTAB67 PO; -OMEG100037 PO; +OXYGENDME NAS.CANULA; -PRAM0.25 PO; -PROS5TAB2 PO; -PROT0.1O TOP; -SODI1000 PO; -TAB-TAB PO; -TERB250 PO; -TRAM50TA PO; +UMEC1AER INH; -ZOLP10TA3 PO; +[UNRECOGNIZED DRUG - OTHER] NAS.CANULA; -[UNRECOGNIZED DRUG - OTHER] PO
[2017-10-22 18:30] VITALS: BP 152/71; PULSE 83; RESP 18; TEMP 97.9; O2SAT 95
[2017-10-22] MEDS ORDERED: HYDR-3580 PO (18:45)
[2017-10-22] MEDS ORDERED: TRAM50TA PO (18:45)
[2017-10-22] MEDS ORDERED: methylPREDNISolone SOD SUCC 125 MG/2 ML VIAL IV PUSH ONE (18:45)
[2017-10-22] MEDS ORDERED: SODIUM CHLORIDE 0.9% FLUSH 10 ML FLUSH IVF PRN (18:45)
[2017-10-22] MEDS ORDERED: RESP: LIDOCAINE HCL 4% PF 5 ML NEB NEB ONE (18:45)
[2017-10-22] MEDS ORDERED: CEFU1TAB20 PO (18:45)
[2017-10-22] MEDS ORDERED: ZOLP10TA3 PO (18:45)
--- NOTE | 2017-10-22 18:58 | PD ---
HPI Chief Complaint: Respiratory Symptoms Time Seen by Provider: 18:34 Travel History International Travel<30 days: No Contact w/Intl Traveler<30days: No Traveled to known affect area: No History of Present Illness HPI The patient is a 72-year-old male who presents to the emergency department for shortness of breath. The patient's shortness of breath started on Monday, is associated with a occasionally productive cough, wheezing, and increasing shortness of breath. The patient thinks that he has an upper respiratory infection or environmental allergies that are triggering his COPD. The patient does have a history of COPD and is on oxygen at home via nasal cannula at night. The patient is followed by his band machine operator, Dr. Guan, as well as his primary physician, Dr. Devyn Ferrera. The patient denies any chest pain, nausea, vomiting, diarrhea, or abdominal pain. The patient did use an albuterol nebulizer at home earlier today with minimal relief. He does note subjective fever with chills and sweats. The patient did take an antibiotic at home earlier today, cefuroxime, that was prescribed for COPD exacerbations by his band machine operator. Symptoms are moderate, possibly exacerbated by URI and/or viral syndrome with environmental allergies. PFSH Past Medical History Hx Anticoagulant Therapy: Yes (asa 81mg bid) Cancer: Yes (PROSTATE) Cardiac Catheterization: No Cardiovascular Problems: Yes (htn on meds) High Cholesterol: Yes Chemotherapy: No Congestive Heart Failure: No COPD: Yes Coronary Artery Disease: No Diabetes: No Diminished Hearing: No Gastrointestinal Disorders: Yes Genitourinary: Yes Hypertension: Yes Musculoskeletal: Yes Neurologic: Yes (NEUROPATHY BILAT FEET, SCIATICA LEFT LEG) Psychiatric: No Respiratory: Yes (copd) Myocardial Infarction: No Radiation Therapy: No ?: Not Past Surgical History Coronary Artery Bypass Graft: No Oral Surgery: Yes (TONSILS) Tonsillectomy: Yes Other Surgery: Yes (FEM POP LEFT LEG 1998) Social History Alcohol Use: Yes (BEER DAILY) Tobacco Use: Yes (1 PPD) Substance Use: No Allergies-Medications (Allergen,Severity, Reaction): Coded Allergies: No Known Allergies (Verified Allergy, Unknown, 10/22/17) Reported Meds & Prescriptions Reported Meds & Active Scripts Active Lactobacillus Acidophilus 1 Billion Cell Tab 1 Tab PO TIDAC Oxygen (O2) Device Liter JOSE.CANULA CONTINUOUS Oxygen Concentrator Portable Gaseous 2 L/min via Nasal Canula Continuous For 99 months Reported Cefuroxime (Cefuroxime Axetil) 500 Mg Tab 500 Mg PO BID Hydrocodone-Acetaminophen 7.5 Mg-325 Mg Tab 1 Tab PO Q6H PRN Tramadol (Tramadol HCl) 50 Mg Tab 50 Mg PO Q6H PRN Zolpidem (Zolpidem Tartrate) 10 Mg Tab 10 Mg PO HS PRN Losartan (Losartan Potassium) 50 Mg Tab 50 Mg PO HS Albuterol Neb (Albuterol Sulfate) Unknown Strength Neb Unknown Dose NEB Q4HR NEB PRN [oxygen O2 @2lpm] 2 Liter JOSE.CANULA DIRECTED Gabapentin 600 Mg Tab 600 Mg PO HS [Milk Thistle] Alpha Lipoic Acid 600 Mg Cap 600 Mg DIRECTED Aspirin Children's (Aspirin) 81 Mg Chew 81 Mg CHEW BID Glucosamine Complex (Whbugfhul-Votpoaibpix-Eegzdek) 1 Tab 1 Tab PO l-Arginine (Arginine) 1,000 Mg Tab Multiple Vitamin 1 Tab 1 Tab PO DAILY Cialis (Tadalafil) 5 Mg Tab 5 Mg PO DAILY Do not exceed 1 dose/day. Finasteride 5 Mg Tab 5 Mg DAILY Do not crush. Anoro Ellipta Inh (Umeclidinium/Vilanterol) 62.5-25 Mcg/Act Aero 1 Puff INH DAILY Review of Systems Except as stated in HPI: all other systems reviewed are Neg General / Constitutional: Positive: Fever, Chills HENT: Positive: Congestion Cardiovascular: No: Chest Pain or Discomfort Respiratory: Positive: Cough, Shortness of Breath, Wheezing Gastrointestinal: No: Nausea, Vomiting, Diarrhea, Abdominal Pain Musculoskeletal: No: Myalgias, Edema Physical Exam Narrative GENERAL: Awake, alert, very pleasant 72-year-old male who appears his stated age and is in mild respiratory distress. SKIN: Focused skin assessment warm/dry. HEAD: Atraumatic. Normocephalic. EYES: No injection or drainage per ENT: No nasal bleeding or discharge. Mucous membranes pink and moist. NECK: Trachea midline. No JVD. CARDIOVASCULAR: Regular rate and rhythm. No murmur appreciated. Heart rate in the 80s. RESPIRATORY: Tachypnea with a respiratory rate of 22. Supraclavicular retractions noted. Diminished breath sounds in the bases with prolonged expiratory phase and diffuse wheezes. GASTROINTESTINAL: Abdomen soft, non-tender, nondistended. MUSCULOSKELETAL: No obvious deformities. No clubbing. No cyanosis. No edema. NEUROLOGICAL: Awake and alert. No obvious cranial nerve deficits. Motor grossly within normal limits. Normal speech. PSYCHIATRIC: Appropriate mood and affect; insight and judgment normal. Data Data Last Documented VS Vital Signs Date Time Temp Pulse Resp B/P (MAP) Pulse Ox O2 Delivery O2 Flow Rate FiO2 10/22/17 19:10 81 20 155/84 (107) 93 Room Air 10/22/17 18:30 97.9 Orders Orders Complete Blood Count With Diff (10/22/17 18:40) Comprehensive Metabolic Panel (10/22/17 18:40) B-Type Natriuretic Peptide (10/22/17 18:40) Magnesium (Mg) (10/22/17 18:40) Iv Access Insert/Monitor (10/22/17 18:40) Electrocardiogram (10/22/17 18:40) Ecg Monitoring (10/22/17 18:40) Oximetry (10/22/17 18:40) Oxygen Administration (10/22/17 18:40) Chest, Single Ap (10/22/17 18:40) Sodium Chloride 0.9% Flush (Ns Flush) (10/22/17 18:45) Methylprednisolone So Succ Inj (Solumedr (10/22/17 18:45) Albuterol-Ipratropium Neb (Duoneb Neb) (10/22/17 18:45) Lidocaine Pf 4% Neb (Lidocaine Pf 4% Neb (10/22/17 18:45) Admit Order (Ed Use Only) (10/22/17 19:50) Labs Laboratory Tests Test 10/22/17 19:00 White Blood Count 6.0 TH/MM3 Red Blood Count 4.22 MIL/MM3 Hemoglobin 13.6 GM/DL Hematocrit 40.7 % Mean Corpuscular Volume 96.5 FL Mean Corpuscular Hemoglobin 32.2 PG Mean Corpuscular Hemoglobin Concent 33.3 % Red Cell Distribution Width 12.6 % Platelet Count 139 TH/MM3 Mean Platelet Volume 8.0 FL Neutrophils (%) (Auto) 69.1 % Lymphocytes (%) (Auto) 9.8 % Monocytes (%) (Auto) 8.0 % Eosinophils (%) (Auto) 12.4 % Basophils (%) (Auto) 0.7 % Neutrophils # (Auto) 4.2 TH/MM3 Lymphocytes # (Auto) 0.6 TH/MM3 Monocytes # (Auto) 0.5 TH/MM3 Eosinophils # (Auto) 0.7 TH/MM3 Basophils # (Auto) 0.0 TH/MM3 CBC Comment DIFF FINAL Differential Comment Blood Urea Nitrogen 12 MG/DL Creatinine 0.65 MG/DL Random Glucose 90 MG/DL Total Protein 7.1 GM/DL Albumin 3.9 GM/DL Calcium Level 9.6 MG/DL Magnesium Level 1.8 MG/DL Alkaline Phosphatase 98 U/L Aspartate Amino Transf (AST/SGOT) 24 U/L Alanine Aminotransferase (ALT/SGPT) 24 U/L Total Bilirubin 0.4 MG/DL Sodium Level 129 MEQ/L Potassium Level 4.2 MEQ/L Chloride Level 95 MEQ/L Carbon Dioxide Level 28.5 MEQ/L Anion Gap 6 MEQ/L Estimat Glomerular Filtration Rate 120 ML/MIN B-Type Natriuretic Peptide 36 PG/ML MDM Medical Decision Making Medical Screen Exam Complete: Yes Emergency Medical Condition: Yes Medical Record Reviewed: Yes Interpretation(s) EKG reveals normal sinus rhythm with a rate 81. Q-wave in lead III with inverted T-wave in lead III and aVF. Last Impressions Chest X-Ray 10/22/17 1840 Signed Impressions: CONCLUSION: COPD Stable chest No evidence of acute airspace disease. Laboratory Tests Test 10/22/17 19:00 White Blood Count 6.0 TH/MM3 Red Blood Count 4.22 MIL/MM3 Hemoglobin 13.6 GM/DL Hematocrit 40.7 % Mean Corpuscular Volume 96.5 FL Mean Corpuscular Hemoglobin 32.2 PG Mean Corpuscular Hemoglobin Concent 33.3 % Red Cell Distribution Width 12.6 % Platelet Count 139 TH/MM3 Mean Platelet Volume 8.0 FL Neutrophils (%) (Auto) 69.1 % Lymphocytes (%) (Auto) 9.8 % Monocytes (%) (Auto) 8.0 % Eosinophils (%) (Auto) 12.4 % Basophils (%) (Auto) 0.7 % Neutrophils # (Auto) 4.2 TH/MM3 Lymphocytes # (Auto) 0.6 TH/MM3 Monocytes # (Auto) 0.5 TH/MM3 Eosinophils # (Auto) 0.7 TH/MM3 Basophils # (Auto) 0.0 TH/MM3 CBC Comment DIFF FINAL Differential Comment Blood Urea Nitrogen 12 MG/DL Creatinine 0.65 MG/DL Random Glucose 90 MG/DL Total Protein 7.1 GM/DL Albumin 3.9 GM/DL Calcium Level 9.6 MG/DL Magnesium Level 1.8 MG/DL Alkaline Phosphatase 98 U/L Aspartate Amino Transf (AST/SGOT) 24 U/L Alanine Aminotransferase (ALT/SGPT) 24 U/L Total Bilirubin 0.4 MG/DL Sodium Level 129 MEQ/L Potassium Level 4.2 MEQ/L Chloride Level 95 MEQ/L Carbon Dioxide Level 28.5 MEQ/L Anion Gap 6 MEQ/L Estimat Glomerular Filtration Rate 120 ML/MIN B-Type Natriuretic Peptide 36 PG/ML Differential Diagnosis Differential diagnosis includes COPD exacerbation, bronchitis, pneumonia, pulmonary embolism, acute coronary syndrome, pneumothorax, pleural effusion, URI , viral syndrome. Narrative Course IV was established, labs are drawn and sent, and the patient was placed on cardiac telemetry monitoring and continuous pulse oximetry monitoring. EKG was ordered and interpreted. The patient was administered Solu-Medrol 125 mg intravenously duo nebs 3. Chest x-ray was obtained. The patient's chest x- ray will was unremarkable, no acute changes. Sodium is 129, I reviewed the EMR , his sodium appears to be baseline between 129 and 132. BNP is unremarkable. White count is unremarkable. The patient was afebrile. The patient was reassessed, the patient's heart rate was in the 80s, he still had tight lung sounds and expiratory wheezes. The patient was given a trial of ambulation around the emergency department, alf through the walk his respiratory rate went up to 32 and he had supraclavicular retractions. The patient was brought back to the room and placed back on oxygen via nasal cannula. I had a discussion with the patient regarding outpatient treatment versus inpatient treatment, after discussion was agreed the patient would be 23 hour observation for serial nebulizers, oxygen via nasal cannula, and steroids. The patient's physician is Dr. Devyn Ferrera, therefore, the on-call medical service was paged for 23 hour observation. Physician Communication Physician Communication [facility] were paged for 23 hour observation. I discussed the patient with Dr. Angeles who agrees with 23 hour observation. Diagnosis Primary Impression: COPD exacerbation Additional Impression: Hyponatremia Admitting Information Admitting Physician Requests: Observation Condition: Stable Jose Alejandro Batista MD October 22, 2017 18:58
[2017-10-22] MEDS: RESP: ALBUTEROL 2.5 MG/IPRATROPIUM 0.5 MG NEB (SCH) INH ×2 (19:06→19:07)
--- NOTE | 2017-10-22 19:09 | RADRPT ---
EXAM DATE: 10/22/2017 7:00 PM EDT AGE/SEX: 72 years / Male INDICATIONS: Short of breath, cough CLINICAL DATA: This is the patient's initial encounter. Patient reports that signs and symptoms have been present for 2 days and indicates a pain score of 0/10. MEDICAL/SURGICAL HISTORY: Chronic obstructive pulmonary disease. None. COMPARISON: [facility], CHEST SINGLE AP, 07/02/2017. . FINDINGS: Lungs are hyperinflated. There is coarsening of the interstitial markings. There is no evidence of co nsolidating airspace disease, mass densities or effusions Heart and mediastinal structures are stable. CONCLUSION: COPD Stable chest No evidence of acute airspace disease. Electronically signed by: Scott Galeana MD 10/22/2017 7:07 PM EDT
[2017-10-22 19:10] VITALS: BP 155/84; PULSE 81; RESP 20; O2SAT 93
[2017-10-22 19:10] LABS: AUTOMATED NEUTROPHIL # 4.2 TH/MM3 (1.8-7.7); BASOPHIL % 0.7 % (0.0-2.0); EOSINOPHIL # 0.7 TH/MM3 (0-0.4); EOSINOPHIL % 12.4 % (0.0-4.0); HEMATOCRIT 40.7 % (39.0-51.0); HEMOGLOBIN 13.6 GM/DL (13.0-17.0); LYMPH % 9.8 % (9.0-44.0); LYMPHOCYTE # 0.6 TH/MM3 (1.0-4.8); MEAN CELL VOLUME 96.5 FL (80.0-100.0); MEAN CORPUSCULAR HEMOGLOBIN 32.2 PG (27.0-34.0); MEAN CORPUSCULAR HGB CONC 33.3 % (32.0-36.0); MONOCYTE # 0.5 TH/MM3 (0-0.9); NEUT % 69.1 % (16.0-70.0); PLATELET COUNT 139 TH/MM3 (150-450); RED BLOOD COUNT 4.22 MIL/MM3 (4.50-5.90); RED CELL DISTRIBUTION WIDTH 12.6 % (11.6-17.2)
[2017-10-22 19:19] LABS: CHLORIDE 95 MEQ/L (98-107); SODIUM (NA) 129 MEQ/L (136-145)
[2017-10-22 19:22] LABS: ALBUMIN 3.9 GM/DL (3.4-5.0); BICARBONATE 28.5 MEQ/L (21.0-32.0); BLOOD UREA NITROGEN 12 MG/DL (7-18); CALCIUM 9.6 MG/DL (8.5-10.1); GLUCOSE,RANDOM 90 MG/DL (74-106); MAGNESIUM 1.8 MG/DL (1.5-2.5)
[2017-10-22 19:25] LABS: ALT (GPT) 24 U/L (12-78); AST (GOT) 24 U/L (15-37); CREATININE 0.65 MG/DL (0.60-1.30); GLOMERULAR FILTRATION RATE 120 ML/MIN (>89)
[2017-10-22 19:27] LABS: TOTAL BILIRUBIN ADULT 0.4 MG/DL (0.2-1.0); TOTAL PROTEIN 7.1 GM/DL (6.4-8.2)
[2017-10-22 19:28] LABS: ALKALINE PHOSPHATASE 98 U/L (45-117)
[2017-10-22 20:00] VITALS: O2SAT 94
[2017-10-22] MEDS ORDERED: SENNOSIDES 8.6 MG TAB PO PRN (20:00)
[2017-10-22] MEDS ORDERED: ACETAMINOPHEN 325 MG TAB PO PRN (20:00)
[2017-10-22] MEDS ORDERED: ACETAMINOPHEN/HYDROcodone 325 MG/5 MG TAB PO PRN (20:00)
[2017-10-22] MEDS ORDERED: BISACODYL 10 MG SUPP RECTAL PRN (20:00)
[2017-10-22] MEDS ORDERED: LACTULOSE SYRUP 20 GM/30 ML CUP PO PRN (20:00)
[2017-10-22] MEDS ORDERED: ACETAMINOPHEN/HYDROcodone 325 MG/10 MG TAB PO PRN (20:00)
[2017-10-22] MEDS ORDERED: MAGNESIUM HYDROXIDE SUSP 30 ML CUP PO PRN (20:00)
[2017-10-22 20:23] VITALS: BP 147/71; PULSE 90; RESP 20; O2SAT 94
[2017-10-22] MEDS: ASPIRIN 81 MG CHEW TAB CHEW SCH (20:48)
[2017-10-22] MEDS: GABAPENTIN 300 MG CAP PO SCH (20:49)
[2017-10-22] MEDS: guaiFENesin E.R. 600 MG TAB PO SCH (21:00)
[2017-10-22] MEDS: DOCUSATE SODIUM 50 MG/SENNA 8.6 MG TAB PO SCH (21:11)
[2017-10-22] MEDS: SODIUM CHLORIDE 0.9% FLUSH 10 ML FLUSH IV FLUSH SCH (21:11)
[2017-10-22] MEDS: LOSARTAN 50 MG TAB PO SCH (21:11)
[2017-10-22 21:15] VITALS: BP 159/77; PULSE 90; RESP 21; TEMP 96.6; O2SAT 92
[2017-10-22 22:30] VITALS: O2SAT 90
[2017-10-22] MEDS: RESP: ALBUTEROL 2.5 MG/IPRATROPIUM 0.5 MG NEB (SCH) NEB (22:30)
[2017-10-22] MEDS: methylPREDNISolone SOD SUCC 40 MG/1 ML VIAL IV PUSH SCH (23:09)
[2017-10-22] MEDS: ZOLPIDEM TARTRATE 10 MG TAB PO PRN (23:09)
[2017-10-23] VITALS (7 sets, daily range): BP systolic 138–170; BP diastolic 65–75; PULSE 80–95; RESP 17–22; TEMP 96.1–98.3; O2SAT 94–97
[2017-10-23] MEDS: methylPREDNISolone SOD SUCC 40 MG/1 ML VIAL IV PUSH SCH ×4 (06:21→23:38)
[2017-10-23] MEDS: RESP: ALBUTEROL 2.5 MG/IPRATROPIUM 0.5 MG NEB (PRN) NEB ×2 (06:31→23:35)
[2017-10-23 06:51] LABS: BASOPHIL % 0.1 % (0.0-2.0); EOSINOPHIL % 0.6 % (0.0-4.0); HEMATOCRIT 42.7 % (39.0-51.0); HEMOGLOBIN 14.1 GM/DL (13.0-17.0); LYMPH % 5.6 % (9.0-44.0); LYMPHOCYTE # 0.2 TH/MM3 (1.0-4.8); MEAN CORPUSCULAR HEMOGLOBIN 31.7 PG (27.0-34.0); MEAN PLATELET VOLUME 8.5 FL (7.0-11.0); MONO % 2.5 % (0.0-8.0); MONOCYTE # 0.1 TH/MM3 (0-0.9); NEUT % 91.2 % (16.0-70.0); PLATELET COUNT 148 TH/MM3 (150-450); RED BLOOD COUNT 4.44 MIL/MM3 (4.50-5.90); RED CELL DISTRIBUTION WIDTH 12.5 % (11.6-17.2); WHITE BLOOD COUNT 4.3 TH/MM3 (4.0-11.0)
[2017-10-23 07:26] LABS: CHLORIDE 98 MEQ/L (98-107); SODIUM (NA) 133 MEQ/L (136-145)
[2017-10-23 07:31] LABS: ALBUMIN 3.6 GM/DL (3.4-5.0); BICARBONATE 27.3 MEQ/L (21.0-32.0); BLOOD UREA NITROGEN 9 MG/DL (7-18); GLUCOSE,RANDOM 181 MG/DL (74-106)
[2017-10-23 07:34] LABS: ALT (GPT) 22 U/L (12-78); AST (GOT) 25 U/L (15-37); GLOMERULAR FILTRATION RATE 132 ML/MIN (>89)
[2017-10-23 07:35] LABS: CALCIUM 9.2 MG/DL (8.5-10.1); TOTAL BILIRUBIN ADULT 0.2 MG/DL (0.2-1.0)
[2017-10-23 07:37] LABS: ALKALINE PHOSPHATASE 90 U/L (45-117)
--- NOTE | 2017-10-23 08:11 | EKG ---
Date Performed: 10/22/2017 Time Performed: 18:48:08 PTAGE: 72 years EKG: Sinus rhythm POSSIBLE INFERIOR INFARCT, AGE UNDETERMINED INFERIOR T WAVE ABNORMALITY, CONSIDER ISCHEMIA PREVIOUS TRACING : 07/02/2017 13.55 Compared to previous tracing, possible inferior ID pa ttern and inferior T wave inversion are now present. DOCTOR: Giacomo Moss Interpretating Date/Time 10/23/2017 08:10:25
[2017-10-23] MEDS: RESP: ALBUTEROL 2.5 MG/IPRATROPIUM 0.5 MG NEB (SCH) NEB ×4 (08:31→19:38)
[2017-10-23] MEDS: TADALAFIL 5 MG PO SCH (08:51)
[2017-10-23] MEDS: guaiFENesin E.R. 600 MG TAB PO SCH ×2 (08:54→21:35)
[2017-10-23] MEDS: MULTIVITAMIN TAB PO SCH (08:54)
[2017-10-23] MEDS: DOCUSATE SODIUM 50 MG/SENNA 8.6 MG TAB PO SCH ×2 (08:55→21:00)
[2017-10-23] MEDS: FINASTERIDE 5 MG TAB PO SCH (08:55)
[2017-10-23] MEDS: UMECLIDINIUM 62.5 MCG/VILANTEROL 25 MCG INHALER INH SCH (08:55)
[2017-10-23] MEDS: ASPIRIN 81 MG CHEW TAB CHEW SCH ×2 (08:55→21:35)
[2017-10-23] MEDS: SODIUM CHLORIDE 0.9% FLUSH 10 ML FLUSH IV FLUSH SCH ×2 (08:56→21:30)
[2017-10-23] MEDS: BUDESONIDE-FORMOTEROL 160/4.5 MCG INHALER INH SCH ×2 (09:12→21:44)
--- NOTE | 2017-10-23 10:28 | HHI.HP ---
HPI Service [facility] Primary Care Physician Devyn Ferrera, DO Admission Diagnosis COPD exacerbation, hyponatremia Diagnoses: (1) Chronic obstructive pulmonary disease with acute exacerbation Diagnosis: Principal Chief Complaint: Patient with shortness of breath and dyspnea Travel History International Travel<30 Days: No Contact w/Intl Traveler <30 Da: No Traveled to Known Affected Are: No History of Present Illness Written by Abraham Burdick, acting as scribe for Dr. Stoner on 10/23/17 at 10: 27. 72-year-old male with known history of chronic obstructive pulmonary disease, chronic tobacco use who presented the hospital because of 3 day history of shortness of breath, dyspnea. Patient states that his symptoms started 3 days ago on Monday when he sneezed and started developing rhinorrhea. 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 He states that he was normal date of health at night but when he woke up Monday morning he was significantly worse with significant shortness of breath, dyspnea. Patient indicates that he went and got himself some cold and flu medication [id number] as well as he was using his nebulizer machine 4 times daily. Patient indicates that his senior chemist Dr. Foster has given him prescription for Ceftin that if he starts developing any type of respiratory problems that he should take it. Patient states that he took 1 dose of medication. The patient records indicate that he is usually a chronic respiratory failure on 2 L nasal cannula at all times. However he states that he only uses it at night. He has not used it any more frequent since he developed his respiratory symptoms this time. Patient did not improve and because he did not improve he came to emergency department for evaluation. Patient denies any fever, chills, chest pain, abdominal pain, nausea, vomiting, diaphoresis. Review of Systems Ears, nose, mouth, throat: COMPLAINS OF: Running Nose Respiratory: COMPLAINS OF: Cough, Shortness of breath Except as stated in HPI: all other systems reviewed are Neg Past Family Social History Past Medical History Hypertension Chronic obstructive pulmonary disease Chronic respiratory failure, oxygen dependent Benign prostatic hypertrophy History of prostate cancer Peripheral neuropathy L4-L5 radiculopathy Past Surgical History Left femoropopliteal surgery Tonsillectomy Reported Medications Reported Meds & Active Scripts Active Lactobacillus Acidophilus 1 Billion Cell Tab 1 Tab PO TIDAC Oxygen (O2) Device Liter JOSE.CANULA CONTINUOUS Oxygen Concentrator Portable Gaseous 2 L/min via Nasal Canula Continuous For 99 months Reported Cefuroxime (Cefuroxime Axetil) 500 Mg Tab 500 Mg PO BID Hydrocodone-Acetaminophen 7.5 Mg-325 Mg Tab 1 Tab PO Q6H PRN Tramadol (Tramadol HCl) 50 Mg Tab 50 Mg PO Q6H PRN Zolpidem (Zolpidem Tartrate) 10 Mg Tab 10 Mg PO HS PRN Losartan (Losartan Potassium) 50 Mg Tab 50 Mg PO HS Albuterol Neb (Albuterol Sulfate) Unknown Strength Neb Unknown Dose NEB Q4HR NEB PRN [oxygen O2 @2lpm] 2 Liter JOSE.CANULA DIRECTED Gabapentin 600 Mg Tab 600 Mg PO HS [Milk Thistle] Alpha Lipoic Acid 600 Mg Cap 600 Mg DIRECTED Aspirin Children's (Aspirin) 81 Mg Chew 81 Mg CHEW BID Glucosamine Complex (Galutltwq-Ugeroapbipn-Ldjnplz) 1 Tab 1 Tab PO l-Arginine (Arginine) 1,000 Mg Tab Multiple Vitamin 1 Tab 1 Tab PO DAILY Cialis (Tadalafil) 5 Mg Tab 5 Mg PO DAILY Do not exceed 1 dose/day. Finasteride 5 Mg Tab 5 Mg DAILY Do not crush. Anoro Ellipta Inh (Umeclidinium/Vilanterol) 62.5-25 Mcg/Act Aero 1 Puff INH DAILY Allergies: Coded Allergies: No Known Allergies (Verified Allergy, Unknown, 10/22/17) Family History Family history was reviewed and significant for mother with cancer, father with aortic aneurysm and coronary artery disease Social History Patient continues to smoke one half pack of cigarettes a day. He used to smoke 1 pack of cigarettes a day since he was 15 years old. Patient does drink 3-4 beers daily. Denies any illicit drug Physical Exam Vital Signs Vital Signs Date Time Temp Pulse Resp B/P (MAP) Pulse Ox O2 Delivery O2 Flow Rate FiO2 10/23/17 08:38 97.3 95 20 138/65 (89) 94 10/23/17 08:33 94 Nasal Cannula 3.00 10/23/17 00:19 96.2 92 20 153/75 (101) 95 10/22/17 22:30 90 Nasal Cannula 2.00 10/22/17 22:30 94 Nasal Cannula 3.00 10/22/17 21:20 92 Nasal Cannula 2.00 10/22/17 21:15 96.6 90 21 159/77 (104) 92 10/22/17 20:53 2.00 10/22/17 20:23 90 20 147/71 (96) 94 Nasal Cannula 2.00 10/22/17 20:00 94 Nasal Cannula 2.00 10/22/17 19:10 81 20 155/84 (107) 93 Room Air 10/22/17 19:10 Room Air 10/22/17 19:10 Room Air 10/22/17 18:45 18 93 10/22/17 18:30 97.9 83 18 152/71 (98) 95 Physical Exam GENERAL: Well-developed, well-nourished, in no acute distress. alert and orientated HEENT: Head is normocephalic without any lesions or masses noted. Facial features are symmetric. Eyes: Pupils equal round reactive to light. Extraocular muscles are intact. Conjunctivae were clear. Oropharyngeal: Pharynx without any erythema edema. Tongue is midline without deviation. Buccal mucosa is moist without any masses or lesions NECK: Supple without any masses. Trachea midline no deviation. No JVD, no bruits are appreciated CARDIAC: Regular rhythm, regular rate. S1/S2 are heard. No murmurs gallops or rubs. LUNGS: Patient with diminished sounds noted bilaterally. Faint wheeze noted throughout the lungs. No rhonchi or rales. Patient is using accessory muscles on inspiration ABDOMEN: Soft, nontender. Nondistended. Bowel sounds heard in all 4 quadrants. No organomegaly or masses. Negative rebound, negative guarding EXTREMITIES: No edema, pulses are equal bilaterally. No cyanosis or clubbing NEUROLOGY: Mood and affect appear appropriate. Cranial nerves II through XII grossly intact. Muscle strength 5/5 in upper and lower extremities bilaterally. Deep tendon reflexes are 2+ in upper and lower extremities bilaterally. Laboratory Laboratory Tests Test 10/22/17 19:00 10/23/17 06:20 White Blood Count 6.0 4.3 Red Blood Count 4.22 4.44 Hemoglobin 13.6 14.1 Hematocrit 40.7 42.7 Mean Corpuscular Volume 96.5 96.0 Mean Corpuscular Hemoglobin 32.2 31.7 Mean Corpuscular Hemoglobin Concent 33.3 33.0 Red Cell Distribution Width 12.6 12.5 Platelet Count 139 148 Mean Platelet Volume 8.0 8.5 Neutrophils (%) (Auto) 69.1 91.2 Lymphocytes (%) (Auto) 9.8 5.6 Monocytes (%) (Auto) 8.0 2.5 Eosinophils (%) (Auto) 12.4 0.6 Basophils (%) (Auto) 0.7 0.1 Neutrophils # (Auto) 4.2 4.0 Lymphocytes # (Auto) 0.6 0.2 Monocytes # (Auto) 0.5 0.1 Eosinophils # (Auto) 0.7 0.0 Basophils # (Auto) 0.0 0.0 CBC Comment DIFF FINAL DIFF FINAL Differential Comment Blood Urea Nitrogen 12 9 Creatinine 0.65 0.60 Random Glucose 90 181 Total Protein 7.1 7.0 Albumin 3.9 3.6 Calcium Level 9.6 9.2 Magnesium Level 1.8 Alkaline Phosphatase 98 90 Aspartate Amino Transf (AST/SGOT) 24 25 Alanine Aminotransferase (ALT/SGPT) 24 22 Total Bilirubin 0.4 0.2 Sodium Level 129 133 Potassium Level 4.2 4.6 Chloride Level 95 98 Carbon Dioxide Level 28.5 27.3 Anion Gap 6 8 Estimat Glomerular Filtration Rate 120 132 B-Type Natriuretic Peptide 36 Result Diagram: 10/23/17 0620 10/23/17 0620 Imaging Last Impressions Chest X-Ray 10/22/17 1840 Signed Impressions: CONCLUSION: COPD Stable chest No evidence of acute airspace disease. Caprini VTE Risk Assessment Caprini VTE Risk Assessment: Mod/High Risk (score >= 2) Caprini Risk Assessment Model Point Value = 1 Point Value = 2 Point Value = 3 Point Value = 5 Age 41-60 Minor surgery BMI > 25 kg/m2 Swollen legs Varicose veins or History of unexplained or recurrent spontaneous Oral contraceptives or hormone replacement Sepsis (< 1 month) Serious lung disease, including pneumonia (< 1 month) Abnormal pulmonary function Acute myocardial infarction Congestive heart failure (< 1 month) History of inflammatory bowel disease Medical patient at bed rest Age 61-74 Arthroscopic surgery Major open surgery (> 45 min) Laparoscopic surgery (> 45 min) Malignancy Confined to bed (> 72 hours) Immobilizing plaster cast Central venous access Age >= 75 History of VTE Family history of VTE Factor V Leiden Prothrombin [id number] Lupus anticoagulant Anticardiolipin antibodies Elevated serum homocysteine Heparin-induced thrombocytopenia Other congenital or acquired thrombophilia Stroke (< 1 month) Elective arthroplasty Hip, pelvis, or leg fracture Acute spinal cord injury (< 1 month) Prophylaxis Regimen Total Risk Factor Score Risk Level Prophylaxis Regimen 0-1 Low Early ambulation 2 Moderate Order ONE of the following: *Sequential Compression Device (SCD) *Heparin 5000 units SQ BID 3-4 Higher Order ONE of the following medications: *Heparin 5000 units SQ TID *Enoxaparin/Lovenox 40 mg SQ daily (WT < 150 kg, CrCl > 30 mL/min) *Enoxaparin/Lovenox 30 mg SQ daily (WT < 150 kg, CrCl > 10-29 mL/min) *Enoxaparin/Lovenox 30 mg SQ BID (WT < 150 kg, CrCl > 30 mL/min) AND/OR *Sequential Compression Device (SCD) 5 or more Highest Order ONE of the following medications: *Heparin 5000 units SQ TID (Preferred with Epidurals) *Enoxaparin/Lovenox 40 mg SQ daily (WT < 150 kg, CrCl > 30 mL/min) *Enoxaparin/Lovenox 30 mg SQ daily (WT < 150 kg, CrCl > 10-29 mL/min) *Enoxaparin/Lovenox 30 mg SQ BID (WT < 150 kg, CrCl > 30 mL/min) AND *Sequential Compression Device (SCD) Assessment and Plan Assessment and Plan 72-year-old man with Chronic obstructive pulmonary disease with acute exacerbation in a patient with chronic hypoxic respiratory failure -Continue O2 supplementation maintain O2 sats greater than 88% -Increase to Solu-Medrol 60 mg IV every 6 hours -Duo nebs every 4 hours while awake and every 2 hours as needed -Continue Symbicort -Continue guaifenesin -Start Acapella -Start Levaquin 750 mg p.o. daily -Check pro-calcitonin level Hypertension, benign prostatic hypertrophy, peripheral neuropathy -Continue home medications DVT prevention -Subcutaneous heparin This note was transcribed by cira Burdick. I, Dr. Poncho Stoner personally performed the history, physical exam, and medical decision making; and confirmed the accuracy of the information in the transcribed note. Authenticated by Dr. Poncho Stoner on 10/23/17 at 10:27. Code Status Full code Discussed Condition With Patient Physician Certification 2 Midnight Certification Type: Admission for Inpatient Services Order for Inpatient Services The services are ordered in accordance with Medicare regulations or non- Medicare payer requirements, as applicable. In the case of services not specified as inpatient-only, they are appropriately provided as inpatient services in accordance with the 2-midnight benchmark. Estimated LOS (days): 3 days is the estimated time the patient will need to remain in the hospital, assuming treatment plan goals are met and no additional complications. Post-Hospital Plan: Not yet determined Abraham Burdick October 23, 2017 10:27 Poncho Stoner MD October 23, 2017 10:28
[2017-10-23] MEDS: HEPARIN SODIUM - SQ 10,000 UNITS/ML VIAL SQ SCH ×2 (11:14→21:34)
[2017-10-23] MEDS: LEVOFLOXACIN 750 MG TAB PO SCH (11:18)
[2017-10-23] MEDS: LOSARTAN 50 MG TAB PO SCH (21:35)
[2017-10-23] MEDS: GABAPENTIN 300 MG CAP PO SCH (21:36)
[2017-10-23] MEDS: ZOLPIDEM TARTRATE 10 MG TAB PO PRN (23:38)
[2017-10-23] MEDS: SODIUM CHLORIDE 0.9% FLUSH 10 ML FLUSH IV FLUSH PRN (23:38)
[2017-10-24 00:26] VITALS: BP 178/74; PULSE 79; RESP 22; TEMP 97.1; O2SAT 97
[2017-10-24] MEDS: methylPREDNISolone SOD SUCC 40 MG/1 ML VIAL IV PUSH SCH ×2 (05:50→11:25)
[2017-10-24] MEDS: SODIUM CHLORIDE 0.9% FLUSH 10 ML FLUSH IV FLUSH PRN (05:50)
[2017-10-24 07:59] VITALS: BP 170/78; PULSE 68; RESP 20; TEMP 96.8; O2SAT 96
[2017-10-24] MEDS: RESP: ALBUTEROL 2.5 MG/IPRATROPIUM 0.5 MG NEB (SCH) NEB ×3 (08:00→15:25)
[2017-10-24 08:07] VITALS: O2SAT 96
[2017-10-24] MEDS: UMECLIDINIUM 62.5 MCG/VILANTEROL 25 MCG INHALER INH SCH (09:24)
[2017-10-24] MEDS: MULTIVITAMIN TAB PO SCH (09:26)
[2017-10-24] MEDS: ASPIRIN 81 MG CHEW TAB CHEW SCH (09:26)
[2017-10-24] MEDS: guaiFENesin E.R. 600 MG TAB PO SCH (09:26)
[2017-10-24] MEDS: FINASTERIDE 5 MG TAB PO SCH (09:26)
[2017-10-24] MEDS: LEVOFLOXACIN 750 MG TAB PO SCH (09:26)
[2017-10-24] MEDS: BUDESONIDE-FORMOTEROL 160/4.5 MCG INHALER INH SCH (09:26)
[2017-10-24] MEDS: SODIUM CHLORIDE 0.9% FLUSH 10 ML FLUSH IV FLUSH SCH (09:27)
[2017-10-24] MEDS: HEPARIN SODIUM - SQ 10,000 UNITS/ML VIAL SQ SCH (09:27)
[2017-10-24] MEDS: DOCUSATE SODIUM 50 MG/SENNA 8.6 MG TAB PO SCH (09:28)
[2017-10-24] MEDS: TADALAFIL 5 MG PO SCH (09:28)
[2017-10-24] MEDS ORDERED: LEVA750T9 PO (10:22)
[2017-10-24] MEDS ORDERED: PRED20 PO (10:25)
[2017-10-24] MEDS ORDERED: guaiFENesin ER PO (10:26)
--- NOTE | 2017-10-24 10:26 | HHI.PR ---
Subjective Remarks Follow-up COPD exacerbation October 24, 2017-patient seen and examined, still with some shortness of breath and wheezing on exam. Objective Vitals Vital Signs Date Time Temp Pulse Resp B/P (MAP) Pulse Ox O2 Delivery O2 Flow Rate FiO2 10/24/17 08:07 96 Nasal Cannula 3.00 10/24/17 07:59 96.8 68 20 170/78 (108) 96 10/24/17 00:26 97.1 79 22 178/74 (108) 97 10/23/17 20:00 97 Nasal Cannula 3.00 10/23/17 20:00 96.1 80 22 170/74 (106) 97 10/23/17 19:38 95 Nasal Cannula 3.00 10/23/17 19:12 97.5 91 19 139/65 (89) 96 10/23/17 12:00 98.3 90 17 96 I/O 10/23/17 10/23/17 10/23/17 10/24/17 10/24/17 10/24/17 07:00 15:00 23:00 07:00 15:00 23:00 Intake Total 960 ml Output Total 1000 ml Balance -1000 ml 960 ml Intake Oral 960 ml Output Urine Total 1000 ml # Voids 1 6 2 # Bowel Movements 1 1 Result Diagram: 10/23/17 0620 10/23/17 0620 Imaging Last Impressions Chest X-Ray 10/22/17 1840 Signed Impressions: CONCLUSION: COPD Stable chest No evidence of acute airspace disease. Objective Remarks GENERAL: NAD SKIN: Warm and dry. HEAD: Normocephalic. EYES: No scleral icterus. No injection or drainage. NECK: Supple, trachea midline. No JVD or lymphadenopathy. CARDIOVASCULAR: Regular rate and rhythm without murmurs, gallops, or rubs. RESPIRATORY: Breath sounds decreased bilaterally. No accessory muscle use.+ Wheezings GASTROINTESTINAL: Abdomen soft, non-tender, nondistended. MUSCULOSKELETAL: No cyanosis, or edema. BACK: Nontender without obvious deformity. No CVA tenderness. A/P Problem List: (1) Chronic obstructive pulmonary disease with acute exacerbation ICD Code: J44.1 - Chronic obstructive pulmonary disease with (acute) exacerbation Assessment and Plan 72-year-old man with Chronic obstructive pulmonary disease with acute exacerbation in a patient with chronic hypoxic respiratory failure -Continue O2 supplementation maintain O2 sats greater than 88% -Continue Solu-Medrol 60 mg IV every 6 hours -Duo nebs every 4 hours while awake and every 2 hours as needed -Continue Symbicort -Continue guaifenesin -Continue Acapella -Continue Levaquin 750 mg p.o. daily Hypertension, benign prostatic hypertrophy, peripheral neuropathy -Start Procardia XL 60 mg daily and continue home medication including losartan DVT prevention -Subcutaneous heparin Discharge Planning Discharge patient to home Condition on discharge: Improved Regular Diet as tolerated Ad Kaila activity Rx written: See EMR Follow-up with primary care physician in 1 week Poncho Stoner MD October 24, 2017 10:26
[2017-10-24] MEDS ORDERED: NIFEdipine 60 MG SUSTAINED RELEASE TAB PO SCH (10:30)
[2017-10-24 11:29] VITALS: BP 166/73; PULSE 76; RESP 20; TEMP 96.8; O2SAT 97
[2017-10-24 15:26] VITALS: O2SAT 97
[2017-10-24 16:00] VITALS: BP 168/75; PULSE 72; RESP 20; TEMP 97.2; O2SAT 97
== END 2017-10-24 17:11 | disposition home or self-care (01) | DRG 191 ==
LOC: PHED 18:27 → PHEDA 19:51 → PH3B 21:01 → OBSVTOIN 10-23 10:20
PROVIDERS: ADMIT Hospitalist; ATTEND Hospitalist
DX: J44.1 Chronic obstructive pulmonary disease with (acute) exacerbation (principal); E87.1 Hypo-osmolality and hyponatremia; J96.11 Chronic respiratory failure with hypoxia; G62.9 Polyneuropathy, unspecified; I10 Essential (primary) hypertension; N40.0 Benign prostatic hyperplasia without lower urinary tract symptoms; M54.16 Radiculopathy, lumbar region; F17.210 Nicotine dependence, cigarettes, uncomplicated; Z85.46 Personal history of malignant neoplasm of prostate; Z99.81 Dependence on supplemental oxygen
CPT/HCPCS: 71045; 80053; 83735; 83880; 84145; 85025; 93005; 94640; 94664; 94667; 94668; J1644; J2920; J2930

== ENCOUNTER 2017-10-31 15:32 | Emergency (ER) | payer MEDICARE, OTHER ==
[~2017-10-31] VITALS: Ht 185.4 cm; Wt 72.0 kg
[~2017-10-31 15:32] MED LIST changes: -BUPR75TA PO; +HYDR-3580 PO; -LOSARTAN POTASSIUM; +TRAM50TA PO; +ZOLP10TA3 PO; +guaiFENesin ER PO
[2017-10-31 15:35] VITALS: BP 141/69; PULSE 85; RESP 22; TEMP 97.9; O2SAT 94
[2017-10-31] MEDS: RESP: ALBUTEROL 2.5 MG/IPRATROPIUM 0.5 MG NEB (SCH) INH ×2 (15:59→16:00)
[2017-10-31] MEDS ORDERED: SODIUM CHLORIDE 0.9% FLUSH 10 ML FLUSH IVF PRN (16:00)
[2017-10-31] MEDS ORDERED: methylPREDNISolone SOD SUCC 125 MG/2 ML VIAL IV PUSH ONE (16:00)
[2017-10-31 16:01] VITALS: O2SAT 96
[2017-10-31 16:04] LABS: AUTOMATED NEUTROPHIL # 5.2 TH/MM3 (1.8-7.7); BASOPHIL % 0.7 % (0.0-2.0); EOSINOPHIL % 0.5 % (0.0-4.0); HEMATOCRIT 43.7 % (39.0-51.0); HEMOGLOBIN 14.4 GM/DL (13.0-17.0); LYMPH % 10.3 % (9.0-44.0); LYMPHOCYTE # 0.7 TH/MM3 (1.0-4.8); MEAN CELL VOLUME 96.3 FL (80.0-100.0); MEAN CORPUSCULAR HEMOGLOBIN 31.8 PG (27.0-34.0); NEUT % 73.5 % (16.0-70.0); PLATELET COUNT 243 TH/MM3 (150-450); RED BLOOD COUNT 4.53 MIL/MM3 (4.50-5.90); RED CELL DISTRIBUTION WIDTH 12.8 % (11.6-17.2); WHITE BLOOD COUNT 6.9 TH/MM3 (4.0-11.0)
[2017-10-31 16:13] VITALS: BP 154/74; PULSE 77; RESP 20; O2SAT 95
[2017-10-31 16:14] LABS: CHLORIDE 98 MEQ/L (98-107); SODIUM (NA) 133 MEQ/L (136-145)
[2017-10-31 16:17] LABS: CALCIUM 9.3 MG/DL (8.5-10.1)
[2017-10-31 16:18] LABS: ALBUMIN 3.5 GM/DL (3.4-5.0); BICARBONATE 28.3 MEQ/L (21.0-32.0); BLOOD UREA NITROGEN 15 MG/DL (7-18); GLUCOSE,RANDOM 100 MG/DL (74-106)
[2017-10-31 16:20] LABS: PROTHROMBIN TIME - PATIENT 10.5 SEC (9.8-11.6)
[2017-10-31 16:21] LABS: ALT (GPT) 29 U/L (12-78); AST (GOT) 17 U/L (15-37); CREATININE 0.63 MG/DL (0.60-1.30); GLOMERULAR FILTRATION RATE 124 ML/MIN (>89)
[2017-10-31 16:23] LABS: TOTAL BILIRUBIN ADULT 0.4 MG/DL (0.2-1.0); TOTAL PROTEIN 6.6 GM/DL (6.4-8.2)
--- NOTE | 2017-10-31 16:23 | PD ---
HPI Chief Complaint: Respiratory Symptoms Time Seen by Provider: 15:41 Travel History International Travel<30 days: No Contact w/Intl Traveler<30days: No Traveled to known affect area: No History of Present Illness HPI Patient is a 72-year-old male with history of COPD, who comes in complaining of shortness of breath. He was just discharged from the hospital a few days ago for the same thing. He says he has not gotten any better. He wears oxygen at home. He is a smoker, but says he has not had a cigarette in over a week. He denies any chest pain. He says that his shortness of breath really comes on when he is walking. He denies coughing or fevers. He has been using his albuterol at home without relief. Severity is moderate. PFSH Past Medical History Hx Anticoagulant Therapy: Yes (asa 81mg bid) Cancer: Yes (PROSTATE) Cardiac Catheterization: No Cardiovascular Problems: Yes (htn on meds) High Cholesterol: Yes (RESOLVED NOW, NOT ON MEDS) Chemotherapy: No Congestive Heart Failure: No COPD: Yes Coronary Artery Disease: No Diabetes: No Diminished Hearing: No Gastrointestinal Disorders: Yes Genitourinary: Yes Hypertension: Yes Musculoskeletal: Yes Neurologic: Yes (NEUROPATHY BILAT FEET, SCIATICA LEFT LEG) Psychiatric: No Respiratory: Yes (copd) Myocardial Infarction: No Radiation Therapy: No Sleep Apnea: No Influenza Vaccination: Yes ?: Not Past Surgical History Coronary Artery Bypass Graft: No Oral Surgery: Yes (TONSILS) Tonsillectomy: Yes Other Surgery: Yes (FEM POP LEFT LEG 1998) Social History Alcohol Use: Yes (BEER DAILY) Tobacco Use: Yes (1 PPD) Substance Use: No Allergies-Medications (Allergen,Severity, Reaction): Coded Allergies: No Known Allergies (Verified Allergy, Unknown, 10/31/17) Reported Meds & Prescriptions Reported Meds & Active Scripts Active Prednisone 20 Mg Tab 20 Mg PO DAILY 5 Days Oxygen (O2) Device Liter JOSE.CANULA CONTINUOUS Oxygen Concentrator Portable Gaseous 2 L/min via Nasal Canula Continuous For 99 months Reported Tramadol (Tramadol HCl) 50 Mg Tab 50 Mg PO Q6H PRN Zolpidem (Zolpidem Tartrate) 10 Mg Tab 10 Mg PO HS PRN Losartan (Losartan Potassium) 50 Mg Tab 50 Mg PO HS Albuterol Neb (Albuterol Sulfate) Unknown Strength Neb Unknown Dose NEB Q4HR NEB PRN [oxygen O2 @2lpm] 2 Liter JOSE.CANULA DIRECTED Gabapentin 600 Mg Tab 600 Mg PO HS [Milk Thistle] Alpha Lipoic Acid 600 Mg Cap 600 Mg DIRECTED Aspirin Children's (Aspirin) 81 Mg Chew 81 Mg CHEW BID Glucosamine Complex (Nbrcizpbm-Xhgtutqeyse-Hsyonpd) 1 Tab 1 Tab PO l-Arginine (Arginine) 1,000 Mg Tab Multiple Vitamin 1 Tab 1 Tab PO DAILY Cialis (Tadalafil) 5 Mg Tab 5 Mg PO DAILY Do not exceed 1 dose/day. Finasteride 5 Mg Tab 5 Mg DAILY Do not crush. Anoro Ellipta Inh (Umeclidinium/Vilanterol) 62.5-25 Mcg/Act Aero 1 Puff INH DAILY Review of Systems Except as stated in HPI: all other systems reviewed are Neg General / Constitutional: No: Fever, Chills HENT: No: Headaches, Lightheadedness Cardiovascular: No: Chest Pain or Discomfort Respiratory: Positive: Shortness of Breath Gastrointestinal: No: Nausea, Vomiting Musculoskeletal: No: Myalgias, Edema Skin: No Rash, No Change in Pigmentation Neurologic: No: Weakness, Dizziness Physical Exam Narrative GENERAL: Awake and alert, no acute distress, speaking in full sentences. SKIN: Focused skin assessment warm/dry. HEAD: Atraumatic. Normocephalic. EYES: Pupils equal and round. No scleral icterus. ENT: No nasal bleeding or discharge. Mucous membranes pink and moist. NECK: Trachea midline. No JVD. CARDIOVASCULAR: Regular rate and rhythm. No murmur appreciated. RESPIRATORY: No accessory muscle use. Decreased lung sounds throughout both lungs. Breath sounds equal bilaterally. GASTROINTESTINAL: Abdomen soft, non-tender, nondistended. MUSCULOSKELETAL: No obvious deformities. No clubbing. No cyanosis. No edema. NEUROLOGICAL: Awake and alert. No obvious cranial nerve deficits. Motor grossly within normal limits. Normal speech. PSYCHIATRIC: Appropriate mood and affect; insight and judgment normal. Data Data Last Documented VS Vital Signs Date Time Temp Pulse Resp B/P (MAP) Pulse Ox O2 Delivery O2 Flow Rate FiO2 10/31/17 16:13 77 20 154/74 (100) 95 Nasal Cannula 2.00 10/31/17 15:35 97.9 Orders Orders Complete Blood Count With Diff (10/31/17 15:52) Comprehensive Metabolic Panel (10/31/17 15:52) B-Type Natriuretic Peptide (10/31/17 15:52) Act Partial Throm Time (Ptt) (10/31/17 15:52) Prothrombin Time / Inr (Pt) (10/31/17 15:52) Troponin I (10/31/17 15:52) Iv Access Insert/Monitor (10/31/17 15:52) Electrocardiogram (10/31/17 15:52) Ecg Monitoring (10/31/17 15:52) Oximetry (10/31/17 15:52) Oxygen Administration (10/31/17 15:52) Chest, Single Ap (10/31/17 15:52) Sodium Chloride 0.9% Flush (Ns Flush) (10/31/17 16:00) Methylprednisolone So Succ Inj (Solumedr (10/31/17 16:00) Albuterol-Ipratropium Neb (Duoneb Neb) (10/31/17 16:00) Labs Laboratory Tests Test 10/31/17 15:49 White Blood Count 6.9 TH/MM3 Red Blood Count 4.53 MIL/MM3 Hemoglobin 14.4 GM/DL Hematocrit 43.7 % Mean Corpuscular Volume 96.3 FL Mean Corpuscular Hemoglobin 31.8 PG Mean Corpuscular Hemoglobin Concent 33.0 % Red Cell Distribution Width 12.8 % Platelet Count 243 TH/MM3 Mean Platelet Volume 8.0 FL Neutrophils (%) (Auto) 73.5 % Lymphocytes (%) (Auto) 10.3 % Monocytes (%) (Auto) 15.0 % Eosinophils (%) (Auto) 0.5 % Basophils (%) (Auto) 0.7 % Neutrophils # (Auto) 5.2 TH/MM3 Lymphocytes # (Auto) 0.7 TH/MM3 Monocytes # (Auto) 1.0 TH/MM3 Eosinophils # (Auto) 0.0 TH/MM3 Basophils # (Auto) 0.0 TH/MM3 CBC Comment DIFF FINAL Differential Comment Prothrombin Time 10.5 SEC Prothromb Time International Ratio 1.0 RATIO Activated Partial Thromboplast Time 24.0 SEC Blood Urea Nitrogen 15 MG/DL Creatinine 0.63 MG/DL Random Glucose 100 MG/DL Total Protein 6.6 GM/DL Albumin 3.5 GM/DL Calcium Level 9.3 MG/DL Alkaline Phosphatase 90 U/L Aspartate Amino Transf (AST/SGOT) 17 U/L Alanine Aminotransferase (ALT/SGPT) 29 U/L Total Bilirubin 0.4 MG/DL Sodium Level 133 MEQ/L Potassium Level 4.8 MEQ/L Chloride Level 98 MEQ/L Carbon Dioxide Level 28.3 MEQ/L Anion Gap 7 MEQ/L Estimat Glomerular Filtration Rate 124 ML/MIN Troponin I LESS THAN 0.02 NG/ML B-Type Natriuretic Peptide 20 PG/ML MDM Medical Decision Making Medical Screen Exam Complete: Yes Emergency Medical Condition: Yes Medical Record Reviewed: Yes Interpretation(s) ECG shows normal sinus rhythm at a rate of 81, no ST elevation or depression Differential Diagnosis COPD exacerbation vs pneumonia vs anxiety Narrative Course Patient is a 72 year old male who comes in complaining of SOB. Exam shows decreased breath sounds bilaterally. IV established, labs sent. Labs show no acute abnormalities. CXR shows no acute abnormalities. Last 24 hours Impressions Chest X-Ray 10/31/17 1552 Signed Impressions: CONCLUSION: Negative examination. Patient given 3 duonebs and a dose of solumedrol. Lung sounds improved after treatment. Advised to use albuterol every 4 hours for the next 2 days. Advised to continue his increased dose of prednisone. Advised to follow up with his tile edger and return to the ED as needed for any worsening symptoms. Diagnosis Primary Impression: COPD exacerbation Patient Instructions: COPD (Chronic Obstructive Pulmonary Disease) (ED), General Instructions Additional Instructions: Use her albuterol every 4 hours for the next 2 days. Continue your increased dose of prednisone. Follow-up with Dr. Stevenson. Return to the ED as needed for any worsening symptoms. Disposition: 01 DISCHARGE HOME Condition: Stable Bryanna Chen MD Oct 31, 2017 16:23
[2017-10-31 16:24] LABS: ALKALINE PHOSPHATASE 90 U/L (45-117)
--- NOTE | 2017-10-31 16:24 | RADRPT ---
EXAM DATE: 10/31/2017 4:20 PM EDT AGE/SEX: 72 years / Male INDICATIONS: Shortness of breath. CLINICAL DATA: This is the patient's initial encounter. Patient reports that signs and symptoms have been present for 2 days and indicates a pain score of 0/10. MEDICAL/SURGICAL HISTORY: Chronic obstructive pulmonary disease. None. COMPARISON: [facility], CHEST SINGLE AP, 10/22/2017. . FINDINGS: A single AP view of the chest demonstrates the lungs to be symmetrically aerated without evidence of mass, infiltrate or effusion. The cardiomediastinal contours are unremarkable. Osseous structures a re intact. CONCLUSION: Negative examination. Electronically signed by: Vaibhav Solis MD 10/31/2017 4:23 PM EDT
[2017-10-31 16:26] LABS: TROPONIN I LESS THAN 0.02 NG/ML (0.02-0.05)
[2017-10-31 17:43] VITALS: BP 140/72
--- NOTE | 2017-11-01 19:17 | EKG ---
Date Performed: 10/31/2017 Time Performed: 15:57:45 PTAGE: 72 years EKG: Sinus rhythm WITH SINUS ARRHYTHMIA ABNORMAL ECG PREVIOUS TRACING : 10/22/2017 18.48 Since the previous tracing, no significant change noted DOCTOR: Pedro Castro Interpretating Date/Time 11/01/2017 19:15:37
== END 2017-10-31 18:04 | disposition home or self-care (01) ==
LOC: PHED 15:32
DX: J44.1 Chronic obstructive pulmonary disease with (acute) exacerbation (principal); I49.9 Cardiac arrhythmia, unspecified; R94.31 Abnormal electrocardiogram [ECG] [EKG]; I10 Essential (primary) hypertension; E78.00 Pure hypercholesterolemia, unspecified; J44.9 Chronic obstructive pulmonary disease, unspecified; G62.9 Polyneuropathy, unspecified; F17.210 Nicotine dependence, cigarettes, uncomplicated; Z99.81 Dependence on supplemental oxygen
CPT/HCPCS: 71045; 80053; 83880; 84484; 85025; 85610; 85730; 93005; 94640; 94664; 96374; 99285; J2930